=== PATIENT | female | born 1980 | race Caucasian/White ===

== ENCOUNTER 2025-03-21 22:45 | Observation (INO) ==
[2025-03-21 23:23] LABS: Basophils # (auto) 0.04 K/uL (0.00-0.20); Basophils % (auto) 0.5 %; Eosinophils # (auto) 0.38 K/uL (0.00-0.50); Eosinophils % (auto) 4.3 %; Hematocrit (blood only) 25.7 % (37.0-47.0); Hemoglobin 7.4 g/dl (12.0-16.0); Immature Granulocytes # (auto) 0.01 K/uL (0.01-0.20); Immature Granulocytes % (auto) 0.1 %; Lymphocytes # (auto) 2.18 K/uL (1.20-3.40); Lymphocytes % (auto) 24.8 %; Mean Corpuscular Hemoglobin 20.3 pg (25.0-34.0); Mean Corpuscular Hgb Conc 28.8 g/dL (32.0-36.0); Mean Corpuscular Volume 70.4 fL (80.0-100.0); Mean Platelet Volume 10.3 fL (9.4-12.4); Monocytes # (auto) 0.87 K/uL (0.11-0.59); Monocytes % (auto) 9.9 %; Neutrophils % (auto) 60.4 %; Platelet Count 219 K/uL (130-400); RDW Coefficient of Variation 16.4 % (11.5-14.5); RDW Standard Deviation 41.5 fL (36.4-46.3); Red Blood Count 3.65 M/uL (4.20-5.40); White Blood Count 8.78 K/ul (4.8-10.8)
--- NOTE | 2025-03-21 23:40 | Emergency Department Note ---
Impression & Plan Anemia, Acute dyspnea, Vaginal bleeding Admit to the [facility] ED Provider Note NAME: MELA MORENO AGE: 44 SEX: Female INFORMANT: Patient ED PROVIDER(S): Lor Luna DO CHIEF COMPLAINT: shortness of breath and hypoxia PLAN: Disposition: admit to the [facility] MEDICAL DECISION MAKING: this is a 44-year-old female patient with an extensive past medical history who presents to the emergency department with worsening shortness of breath. patient describes that it is hard for her to walk because of pain in her muscles and it hurts for her to breathe. She is retaining fluid. She has been monitoring monitoring her oxygen saturation at home and it has been in the 80s today. Symptoms worsened at around 1130 this morning. Most of the history is obtained from family member at the bedside. Laboratory study reveals normal white blood cell count and negative troponin. Patient's hemoglobin has dropped to 7.4 down from 8.4 on March 10. The patient has been having difficulty with abnormal uterine bleeding and is perimenopausal and is being followed by gynecology. This could be the source of blood loss. She does suffer from iron deficiency anemia at baseline. It seems that her acute blood loss anemia may have taken her chronic COPD/CHF up a notch to a point that she is unable to compensate. [facility] care. 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 Vital Signs: reviewed and remarkable for hypoxia Additional History obtained from: Family member at the bedside Chronic Medical/Social Conditions affecting care: asthma, COPD, CHF, iron deficiency anemia Prior/ Outside/ External records reviewed: multiple previous primary care notes Differential Diagnosis: blood loss anemia, GI bleeding, CHF, COPD exacerbation, pneumonia Diagnostics, independently interpreted by me: ECG: Normal sinus rhythm at [address] segment elevation or signs of ischemia. There is no ectopy. QTc was normal. Cardiac Monitoring: normal sinus rhythm at a rate of 90 Imaging studies: portable chest x-ray: As per [facility] HPI: 44 year old Female arrives for evaluation of shortness of breath. this is a 44-year-old female patient with a history of anemia, anxiety, bipolar, papillary thyroid carcinoma, asthma, nicotine dependence, obesity, COPD, CVID, type 2 diabetes, hypertension, hyperlipidemia, hypothyroidism, sleep apnea, CHF. patient has had increasing shortness of breath and hypoxia over the past couple of days. Symptoms got significantly worse around 1130 this morning. She noticed that it was becoming more difficult for her to walk secondary to pain up through her back and in her muscles. She found it hard to breathe and increased pain with breathing. PAST MEDICAL HISTORY: See Below, PAST SURGICAL HISTORY: See Below, SOCIAL HISTORY: See Below, HOME MEDICATIONS: See list ALLERGIES: See list VITALS: See Below PHYSICAL EXAMINATION: HEENT: Head - normocephalic and atraumatic. Pupils are equal, round, and reactive to light. Extraocular eye muscles are intact, and sclera are anicteric. Nose - moist nasal mucosa without discharge. Mouth - moist buccal mucosa. Oropharynx is nonerythematous and there is no tonsillar exudate or edema noted. Neck: Supple; no JVD, nuchal rigidity, cervical lymphadenopathy. Heart: Regular rate and rhythm. There is a normal S1 and S2 with no murmurs, clicks, or gallops appreciated. Lungs: Diminished breath sounds in all lung lozoya, clear to auscultation bilaterally with no wheezes, rales, or rhonchi. Abdomen: Soft, completely nontender, nondistended, with good bowel sounds. There are no palpable pulsatile masses or hepatosplenomegaly. There is no guarding, rigidity, or rebound noted. Extremities: 2+ pitting edema in both lower extremities. No skin breakdown appreciated Skin: Pale, warm and dry with good turgor and no rashes. Emergency Department treatment: security monitor, supplemental oxygen, oral Percocet Emergency Department course: The patient was evaluated in room B-8. A complete history and physical was performed. Patient was placed on supplemental oxygen. Previous electronic medical records including primary care notes were reviewed. Laboratory studies were drawn as above. An order was placed for continuous cardiac monitoring. Patient was in a normal sinus rhythm at a rate of 90. Twelve-lead EKG was obtained. Portable chest x-ray was performed. Patient was typed and screened for blood. She was given a dose of oral Percocet for the pain she is having in her legs and back. Past Med/Surg History Problem List (Updated 03/23/25 @ 10:47 by Lor Luna DO) Vaginal bleeding (Acute) Acute dyspnea (Acute) Anemia (Acute) CHF (congestive heart failure) Dyspnea on exertion Menorrhagia Iron deficiency anemia Lumbar radiculopathy Severe persistent asthma Dysphagia History of DVT (deep vein thrombosis) DARWIN (obstructive sleep apnea) Multiple pulmonary nodules determined by computed tomography of lung Adverse effect of prednisone CVID (common variable immunodeficiency) Benign essential hypertension Atherogenic dyslipidemia Morbid obesity with BMI of 40.0-44.9, adult Chronic back pain GERD (gastroesophageal reflux disease) Hypothyroidism Diabetes mellitus, type 2 Basal cell carcinoma above left eye Anemia Schizo affective schizophrenia Bipolar disorder Post traumatic stress disorder Migraine Sleep apnea cpap with oxygen at hs On home oxygen therapy 4L via CPAP at hs only Chronic obstructive pulmonary disease Asthma inhaler daily/prn, nebulizer prn Medical History History of COVID-19 Anxiety disorder Schizo affective schizophrenia PTSD (post-traumatic stress disorder) DARWIN (obstructive sleep apnea) On home oxygen therapy Multiple pulmonary nodules determined by computed tomography of lung Hx of migraines Hx of esophagitis Hypothyroidism GERD (gastroesophageal reflux disease) Diabetes mellitus, type 2 COPD (chronic obstructive pulmonary disease) Chronic back pain Bipolar disorder Asthma History of anemia Dyspnea on exertion History of thyroid cancer Immune system disorder Abnormal stress test (~2018) Hypertension Hyperlipidemia History of pneumonia (~2017) Surgical History History of lung surgery History of foot surgery History of lumbar surgery (~07/19/04) History of colonoscopy History of esophagogastroduodenoscopy (EGD) History of cholecystectomy (~2015) History of basal cell carcinoma (BCC) excision History of tooth extraction S/P thyroid biopsy History of thyroidectomy, total (~2018) History of cardiac cath (~2018) Family History Mother Family history of diabetes mellitus Grandfather (Maternal) Family hx of colon cancer Grandfather (Maternal) Colorectal cancer Other No family history of adverse response to anesthesia Denies family history of Ovarian cancer Prostate cancer Myocardial infarction Breast cancer Social History Smoking Status: Former smoker Tobacco Type: Cigarettes Age Started Using Tobacco: 17; Age Quit Using Tobacco: 42; packs per day: 1; Second Hand Exposure: No; Do You Dip or Chew Tobacco: No; Hx Alcohol Use: Yes Alcohol type: beer and wine Hx Substance Use: No Preferred Language: [place] Communication Ability: Effective Visual Impairment: No Limitations Hearing Ability: Normal Emulsion Operator Required: No Beliefs That Will Affect Care: None marital status: Life Partner Current Living Situation: Spouse Current Living Situation Comment: House with Spouse current occupational status: disabled Feels Safe at Home: Yes Childhood Exposure to Second-Hand Smoke: Yes Dental Care, Regularly: No Physical Activity Frequency: Daily Seatbelt Use: sometimes Sunscreen Use: No Assistive Devices: Cane, CPAP, Oxygen - Continuous, Slide Board and Walker Allergies Allergies Allergy/AdvReac Type Severity Reaction Status Date / Time vancomycin Allergy Severe "shuts Verified 03/21/25 23:54 down my kidneys" promethazine [From Phenergan] Allergy Intermediate muscle Verified 03/21/25 23:54 spams varenicline [From Chantix] Allergy Intermediate "caused Verified 03/21/25 23:54 mental health issues" clindamycin Allergy Mild Rash Verified 03/21/25 23:54 sulfamethoxazole Allergy Mild Rash Verified 03/21/25 23:54 [From Bactrim] trimethoprim [From Bactrim] Allergy Mild Rash Verified 03/21/25 23:54 Home Meds Home Medications Medication Instructions Recorded Confirmed albuterol sulfate 90 mcg/actuation 2 puff inhalation Q6H PRN 02/10/21 03/21/25 aerosol inhaler Shortness Of Breath epinephrine 0.3 mg/0.3 mL 0.3 mg IM Q10M PRN Allergic 02/10/21 03/21/25 injection, auto-injector Reaction fluticasone propionate 50 1 spray intranasal QAM 02/10/21 03/22/25 mcg/actuation nasal spray,suspension immune glob G 1 gram/5 mL(20 70 ml subcut WK 02/10/21 03/21/25 %)-prol-IgA 0-50 mcg/mL subcutaneous soln (Hizentra) levothyroxine 137 mcg capsule 137 mcg PO QAM 02/10/21 03/22/25 bupropion HCl 150 mg 24 hr tablet, 150 mg PO BID 02/14/21 03/22/25 extended release loratadine 10 mg tablet (Claritin) 10 mg PO QAM 02/14/21 03/22/25 potassium chloride 20 mEq oral 20 meq PO DAILY 02/14/21 03/22/25 packet benzonatate 100 mg capsule 100 mg PO BID PRN Cough 07/14/24 03/21/25 citalopram 10 mg tablet (Celexa) 10 mg PO QAM 07/14/24 03/22/25 diclofenac sodium 1 % topical gel 2 g topical QID PRN Pain 07/14/24 03/21/25 famotidine 20 mg tablet 20 mg PO BID 07/14/24 03/22/25 ipratropium bromide 42 mcg (0.06 2 spray intranasal QID PRN 07/14/24 03/21/25 %) nasal spray Congestion triamcinolone acetonide 0.5 % 1 applic topical DAILY PRN Skin 07/14/24 03/21/25 topical cream Irritation pantoprazole 40 mg tablet,delayed 40 mg PO QAM 10/07/24 03/22/25 release (Protonix) gabapentin 400 mg capsule 300 mg PO QID 02/02/25 03/22/25 hydroxyzine pamoate 50 mg capsule 50 mg PO BID PRN Anxiety 03/21/25 03/21/25 olanzapine 15 mg tablet 15 mg PO HS 03/21/25 03/21/25 olanzapine 5 mg tablet 5 mg PO DAILY PRN Agitation 03/21/25 03/21/25 semaglutide 0.25 mg or 0.5 mg (2 0.5 mg subcut WK 03/22/25 03/21/25 mg/3 mL) subcutaneous pen injector (Ozempic) Previous Rx's Medication Instructions Recorded diltiazem HCl 300 mg 300 mg PO QAM #90 caps 11/10/24 capsule,extended release 24 hr (Cardizem CD) metoprolol tartrate 50 mg tablet 50 mg PO BID #180 tabs 11/10/24 budesonide 160 mcg-glycopyr 9 2 inh inhalation BID #10.7 grams 01/04/25 mcg-formot 4.8 mcg/actuation HFA inhaler (Breztri Aerosphere) inhalational spacing device (Space #1 ea 01/04/25 Chamber) naloxone 4 mg/actuation nasal 4 mg intranasal Q2M PRN opioid 01/04/25 spray (Narcan) overdose #2 ea ondansetron HCl 8 mg tablet 8 mg PO Q8H PRN Nausea #30 tabs 04/01/25 ipratropium 0.5 mg-albuterol 3 mg 3 ml inhalation QID PRN Shortness 03/02/25 (2.5 mg base)/3 mL nebulization Of Breath #360 mL soln oxycodone-acetaminophen 5 mg-325 1 tab PO QID PRN pain 30 days #90 03/04/25 mg tablet (Percocet) tabs bumetanide 1 mg tablet 1 mg PO QAM #90 tabs 03/15/25 montelukast 10 mg tablet 10 mg PO QPM #90 tabs 03/15/25 (Singulair) ferrous sulfate 325 mg (65 mg 325 mg PO BIDM #60 tabs 03/22/25 iron) tablet,delayed release Results & Data (ED) Vital Signs Vital Signs - 24 hr 03/21/25 22:47 03/21/25 23:07 Temperature 36.8 C Temperature Source Temporal Artery Scan Pulse Rate 94 H 90 Pulse Rhythm Regular Pulse Strength Normal Respiratory Rate 20 Respiratory Effort / Characteristics Non-Labored Spontaneous Respiratory Depth Normal Respiratory Pattern Regular Blood Pressure 122/72 Blood Pressure Mean 88 Blood Pressure Position Sitting Pulse Oximetry 90 Oxygen Delivery Method Room Air Sepsis Recent Fever Within 48 Hours No Sepsis New/Unexplained Change in Mental Status No Sepsis Action Taken by Nursing No Action Required Laboratory Data 03/22/25 12:57 03/22/25 09:16 Lab Results 03/21/25 03/22/25 03/22/25 Range/Units 23:04 00:05 00:23 WBC 8.78 (4.8-10.8) K/ul RBC 3.65 L (4.20-5.40) M/uL Hgb 7.4 L (12.0-16.0) g/dl Hct 25.7 L (37.0-47.0) % MCV 70.4 L (80.0-100.0) fL MCH 20.3 L (25.0-34.0) pg MCHC 28.8 L (32.0-36.0) g/dL RDW Std Deviation 41.5 (36.4-46.3) fL RDW Coeff of Shen 16.4 H (11.5-14.5) % Plt Count 219 (130-400) K/uL MPV 10.3 (9.4-12.4) fL Immature Gran % (Auto) 0.1 % Neut % (Auto) 60.4 % Lymph % (Auto) 24.8 % [place] % (Auto) 9.9 % Eos % (Auto) 4.3 % Baso % (Auto) 0.5 % Neut # (Auto) 5.30 (1.40-6.50) K/uL Lymph # (Auto) 2.18 (1.20-3.40) K/uL [place] # (Auto) 0.87 H (0.11-0.59) K/uL Eos # (Auto) 0.38 (0.00-0.50) K/uL Baso # (Auto) 0.04 (0.00-0.20) K/uL Immature Gran # (Auto) 0.01 (0.01-0.20) K/uL Polychromasia 2+ Stomatocytes 1+ Sodium 133 L (136-145) mmol/L Potassium 3.9 (3.5-5.1) mmol/L Chloride 97 L (98-107) mmol/L Carbon Dioxide 32 (21-32) mmol/L Anion Gap 4 (3-11) BUN 14 (6-23) mg/dl Creatinine 1.08 (0.6-1.2) mg/dl Est Cr Clr Drug Dosing 72.6 ml/min eGFR 64.96 BUN/Creatinine Ratio 13.0 (10-20) Glucose 135 H (70-99(Fasting)) mg/dl Calcium 8.3 L (8.6-10.3) mg/dl Magnesium 1.8 (1.7-2.4) mg/dl Total Bilirubin 0.3 (0.2-1.0) mg/dl AST 21 (13-39) U/L ALT 17 (7-52) U/L Alkaline Phosphatase 97 (34-104) U/L Troponin I High Sens 3.3 (0-14) pg/ml Total Protein 6.2 (6.0-8.3) gm/dl Albumin 3.7 (3.4-5.0) gm/dl Globulin 2.5 (2.5-4.0) gm/dl Albumin/Globulin Ratio 1.5 (0.9-2) Urine Color Yellow Urine Appearance Clear (Clear) Urine pH 5.5 (4.5-7.5) Ur Specific [place] 1.009 (1.000-1.030) Urine Protein Negative (Negative) Urine Glucose (UA) Negative (Negative) Urine Ketones Negative (Negative) Urine Blood 1+ H (Negative) Urine Nitrite Negative (Negative) Urine Bilirubin Negative (Negative) Urine Urobilinogen Negative (Negative) Ur Leukocyte Esterase Trace H (Negative) Urine WBC (Auto) 0-5 (0-5) /hpf Urine RBC (Auto) 0-2 (0-2) /hpf U Hyaline Cast (Auto) 0-2 (0-2) /lpf U Epithel Cells (Auto) 3-5 H (0-2) /hpf Urine Bacteria (Auto) None Seen (None Seen) Blood Type AB Positive Antibody Screen NEGATIVE Crossmatch See Detail Administered Medications Discontinued Medications Bupropion HCl (Bupropion Xl 150 Mg Tabcr) 150 mg PO BID [facility] Stop: 04/21/25 08:59 Last Admin: 03/22/25 10:03 Dose: 150 mg Documented By: HERMELINDA Citalopram Hydrobromide (Citalopram 20 Mg Tab) 10 mg PO [facility] Stop: 04/21/25 08:59 Last Admin: 03/22/25 10:02 Dose: 10 mg Documented By: HERMELINDA Diltiazem HCl (Diltiazem Hcl 300 Mg Capcr) 300 mg PO [facility] Stop: 04/21/25 08:59 Last Admin: 03/22/25 10:03 Dose: 300 mg Documented By: HERMELINDA Famotidine (Famotidine 20 Mg Tab) 20 mg PO BID [facility] Stop: 04/21/25 08:59 Last Admin: 03/22/25 10:14 Dose: 20 mg Documented By: HERMELINDA Fluticasone Furoate (For Breztri~Fluticasone Furoate 200mcg 14 Puffs/Inhaler) 1 puffs INH DAILY [facility] Stop: 04/21/25 08:59 Last Admin: 03/22/25 10:08 Dose: 1 puffs Documented By: HERMELINDA Fluticasone Propionate (Fluticasone Propionate Na Spr 16 Gm Btl) 1 sprays NA QAM [facility] Stop: 04/21/25 08:59 Last Admin: 03/22/25 10:06 Dose: 1 sprays Documented By: HERMELINDA Furosemide (Furosemide 40 Mg/4 Ml Vial) 40 mg IV ONE ONE Stop: 03/22/25 10:01 Last Admin: 03/22/25 10:41 Dose: Not Given Documented By: HERMELINDA Gabapentin (Gabapentin 300 Mg Cap) 300 mg PO QID [facility] Stop: 04/21/25 08:59 Last Admin: 03/22/25 10:02 Dose: 300 mg Documented By: HERMELINDA Iron Sucrose 300 mg/ Sodium (Chloride) 265 mls @ 176.667 mls/hr IV TODAY ONE Stop: 03/22/25 09:59 Last Infusion: 03/22/25 11:35 Dose: Infused Documented By: Admin: 03/22/25 10:05 Dose: 176.7 mls/hr Documented By: HERMELINDA Insulin Aspart (Insulin Aspart Per Unit Charge) 0 units SC ACHS [facility] Stop: 04/21/25 07:29 Last Admin: 03/22/25 12:41 Dose: Not Given Documented By: Admin: 03/22/25 10:40 Dose: Not Given Documented By: HERMELINDA Levothyroxine Sodium (Levothyroxine Sodium 137 Mcg Tablet) 137 mcg PO DAILYBB [facility] Stop: 04/21/25 06:29 Last Admin: 03/22/25 05:55 Dose: 137 mcg Documented By: MELY Loratadine (L[facility]adine 10 Mg Tab) [facility] Stop: 04/21/25 08:59 Last Admin: 03/22/25 10:05 Dose: 10 mg Documented By: HERMELINDA Metoprolol Tartrate (Metoprolol Tartrate 50 Mg Tab) 50 mg PO BID [facility] Stop: 04/21/25 08:59 Last Admin: 03/22/25 10:05 Dose: 50 mg Documented By: HERMELINDA Oxycodone/Acetaminophen (Oxycodone/Acetaminophen 5mg/325mg Tab) 1 tab PO NOW STA Stop: 03/22/25 00:07 Last Admin: 03/22/25 00:42 Dose: 1 tab Documented By: KASH Oxycodone/Acetaminophen (Oxycodone/Acetaminophen 5mg/325mg Tab) 1 tab PO QID PRN PRN Reason: pain Stop: 04/05/25 03:52 Last Admin: 03/22/25 10:14 Dose: 1 tab Documented By: HERMELINDA Pantoprazole Sodium (Pantoprazole 40 Mg Tab) 40 mg PO QAM [facility] Stop: 04/21/25 08:59 Last Admin: 03/22/25 10:05 Dose: 40 mg Documented By: HERMELINDA Potassium Chloride (Potassium Chloride Pwd 20 Meq Pack) 20 meq PO DAILY [facility] Stop: 04/21/25 08:59 Last Admin: 03/22/25 10:08 Dose: 20 meq Documented By: HERMELINDA Umeclidinium/Vilanterol (For Breztri~Umeclidinium/Vilanterol 62.5/25mcg 7 Puffs/Inhaler) 1 puffs INH DAILY [facility] Stop: 04/21/25 08:59 Last Admin: 03/22/25 10:06 Dose: 1 puffs Documented By: HERMELINDA Discharge Plan Visit Data Chief Complaint: Shortness of Breath/Dyspnea Stated Complaint: HURTS TO BREATHE, LOW OXYGEN ED Provider: Lor Luna Discharge Problem: Anemia, Acute dyspnea, Vaginal bleeding Patient Disposition: Admitted As Inpatient Condition: Serious Discharge Instructions Interventions: ED Discharge Assessment Last Done: 03/22/25 03:15
[2025-03-21 23:41] LABS: Albumin Globulin Ratio 1.5 (0.9-2); Albumin Level 3.7 gm/dl (3.4-5.0); Bilirubin,Total 0.3 mg/dl (0.2-1.0); Calcium 8.3 mg/dl (8.6-10.3); Creatinine Clr Calc Pharmacy 72.6 ml/min; Globulin 2.5 gm/dl (2.5-4.0); Potassium 3.9 mmol/L (3.5-5.1); Total Protein 6.2 gm/dl (6.0-8.3)
[2025-03-22 00:11] LABS: Polychromasia 2+; Stomatocytes 1+
[2025-03-22] MEDS: oxyCODONE/ACETAMINOPHEN 5mg/325mg TAB PO STA (00:42)
[2025-03-22 01:23] LABS: Appearance Urine Clear (Clear); Bacteria Urine Automated None Seen (None Seen); Bilirubin Urine Negative (Negative); Blood Urine 1+ (Negative); Cast Urine Automated 0-2 /lpf (0-2); Color Urine Yellow; Glucose Urine UA Negative (Negative); Ketones Urine Negative (Negative); Leukocyte Esterase Urine Trace (Negative); Nitrite Urine Negative (Negative); Protein Urine Negative (Negative); RBC Urine Automated 0-2 /hpf (0-2); Specific Gravity Urine 1.009 (1.000-1.030); Urobilinogen Urine Negative (Negative); WBC Urine Automated 0-5 /hpf (0-5); pH Urine 5.5 (4.5-7.5)
--- NOTE | 2025-03-22 01:42 | History & Physical Report ---
Date of Service March 22, 2025 Assessment & Plan (1) Iron deficiency anemia: (2) Menorrhagia: (3) Dyspnea on exertion: (4) CHF (congestive heart failure): Plan Patient is a 44-year-old female with past medical history of anemia 2/2 dysfunctional uterine bleeding requiring iron transfusions in the past, DARWIN, COPD, asthma, CVID, pulmonary nodules, CHF, GERD, T2DM, thyroid cancer s/p thyroidectomy, DVT on Xarelto, HTN, HLD, bipolar disorder. Patient presented due to significant dyspnea on exertion, dizziness, pleuritic chest pain, and O2 levels in the 80s at home. She does have oxygen as needed at home which she has not used in several days. Patient was found to have hemoglobin drop from 8.4- 7.4 suspected to be due to current menses which patient stated is heavy. Hemoccult negative. #anemia/dysfunctional uterine bleeding/dyspnea Hgb dropped from 8.4-7.4; microcytic hypochromic anemia. Hemoccult negative. Iron panel 03/10 showed iron 20, TIBC 552, ferritin 4.6 patient is scheduled for iron transfusion next week. VSS at time of admission, on home oxygen at bedtime. - Blood consent signed at time of admission - Type and screen ordered - will order 1U PRBC given symptomatic anemia followed by Lasix 40mg IV x 1 with CHF hx - Trend H&H every 4 hours - Will continue IV Venofer scheduled in outpatient setting as needs to be 24- hour gap between pRBC transfusion - incentive spirometry with dyspnea #CHF - CXR pending however self interpreted as negative, similar to previous. 1+ pitting edema to bilateral lower extremities. Ejection fraction unknown has has recently establish care with [facility] cardiology and yet to receive an echocardiogram (scheduled outpatient). IV Lasix 40 Mg x 1 after blood transfusion - continue Bumex 1 Mg p.o. daily + KCl Teds for lower extremity edema Strict I's and O's - monitor for taco/trali with pRBC above - BNP ordered; acute CHF exacerbation remains within differential given dyspnea and lower extremity edema however dyspnea also explained with above #COPD/asthma/ pulmonary nodules follows with [facility] pulmonology. Stable, no acute exacerbation, no increase in wheezing, no sputum production. Continue home inhalers + duo-neb prn Oxygen as needed for O2 less than 90% #OSAstable Uses 2L oxygen at home with CPAP #T2DM - Controlled on Ozempic at home; hold. Most recent A1C 5.7%. - loose SSI with target BSG range 110-180mg/dL, CF 40, defer carb ratio #CVID - follows with [facility] immunology - Hizentra weekly #HTNstable Continue Cardizem and metoprolol #GERDstable Continue famotidine and PPI #mental healthstable Continue Wellbutrin, Celexa, hydroxyzine prn, Zyprexa HS and prn #thyroid cancers/p partial thyroidectomy Continue levothyroxine #Chronic low back painstable Continue gabapentin VTE ppx: Hx of DVT continue home karthik Garcia Dispo: med/tele Admission and Anticipated Discharge Date Admission Date: 03/22/25 History of Present Illness Chief Complaint: dyspnea Primary Care Provider: Faye Kimball DO Patient is a 44-year-old female with past medical history of anemia 2/2 dysfunctional uterine bleeding requiring iron transfusions in the past, DARWIN, COPD, asthma, CVID, pulmonary nodules, CHF, GERD, T2DM, thyroid cancer s/p thyroidectomy, DVT on Xarelto, HTN, HLD, bipolar disorder. Patient presented due to significant dyspnea on exertion, dizziness, pleuritic chest pain, and O2 levels in the 80s at home. She does have oxygen as needed at home which she has not used in several days. Patient was found to have hemoglobin drop from 8.4- 7.4 suspected to be due to current menses which patient stated is heavy. Hemoccult negative. Patient seen at bedside with her partner present. She endorses the above. She stated that over the past few days she has had dyspnea on exertion and it hurts to take a deep breath. She also endorses fatigue. she stated that her periods used to be regular however her past few have been extremely heavy and lasting for up to 2 weeks. She is currently on day 2 of her current menses and stated it is extremely heavy. She is following with [facility] for potential IUD. She has 1+ pitting edema to bilateral lower extremities which she stated started a few days ago. Her recent diet has been at her baseline, she had beef stew, sloppy Darron's, and hot dogs recently. She also stated she feels like her Bumex is not working as well as she is not peeing as much. CXR personally reviewed and appears to be without any pleural effusions, however official radiologist read pending at this time. She denies any abdominal pain, vomiting, diarrhea, melena, hematochezia. She was a former smoker and quit in 2022. She denies alcohol use. She uses 2L oxygen at night with her CPAP and has a portable oxygen machine which she last used several weeks ago. She did take all of her evening medications. She wishes to be full code, however would not want repeated resuscitation or long- term ventilation. History of iron transfusions (most recent 2 years ago), has had a history of 1 blood transfusion and approximately 2009. Iron panel 03/10 showed iron 20, TIBC 552, ferritin 4.6patient is scheduled for iron transfusion next week. Allergies Allergy/AdvReac Type Severity Reaction Status Date / Time vancomycin Allergy Severe "shuts Verified 03/21/25 23:54 down my kidneys" promethazine [From Phenergan] Allergy Intermediate muscle Verified 03/21/25 23:54 spams varenicline [From Chantix] Allergy Intermediate "caused Verified 03/21/25 23:54 mental health issues" clindamycin Allergy Mild Rash Verified 03/21/25 23:54 sulfamethoxazole Allergy Mild Rash Verified 03/21/25 23:54 [From Bactrim] trimethoprim [From Bactrim] Allergy Mild Rash Verified 03/21/25 23:54 Home Medications Medication Instructions Recorded Confirmed Type albuterol sulfate 90 mcg/actuation 2 puff inhalation Q6H PRN 02/10/21 03/21/25 History aerosol inhaler Shortness Of Breath epinephrine 0.3 mg/0.3 mL 0.3 mg IM Q10M PRN Allergic 02/10/21 03/21/25 History injection, auto-injector Reaction fluticasone propionate 50 1 spray intranasal QAM 02/10/21 03/22/25 History mcg/actuation nasal spray,suspension immune glob G 1 gram/5 mL(20 70 ml subcut WK 02/10/21 03/21/25 History %)-prol-IgA 0-50 mcg/mL subcutaneous soln (Hizentra) levothyroxine 137 mcg capsule 137 mcg PO QAM 02/10/21 03/22/25 History bupropion HCl 150 mg 24 hr tablet, 150 mg PO BID 02/14/21 03/22/25 History extended release loratadine 10 mg tablet (Claritin) 10 mg PO QAM 02/14/21 03/22/25 History potassium chloride 20 mEq oral 20 meq PO DAILY 02/14/21 03/22/25 History packet benzonatate 100 mg capsule 100 mg PO BID PRN Cough 07/14/24 03/21/25 History citalopram 10 mg tablet (Celexa) 10 mg PO QAM 07/14/24 03/22/25 History diclofenac sodium 1 % topical gel 2 g topical QID PRN Pain 07/14/24 03/21/25 History famotidine 20 mg tablet 20 mg PO BID 07/14/24 03/22/25 History ipratropium bromide 42 mcg (0.06 2 spray intranasal QID PRN 07/14/24 03/21/25 History %) nasal spray Congestion triamcinolone acetonide 0.5 % 1 applic topical DAILY PRN Skin 07/14/24 03/21/25 History topical cream Irritation pantoprazole 40 mg tablet,delayed 40 mg PO QAM 10/07/24 03/22/25 History release (Protonix) diltiazem HCl 300 mg 300 mg PO QAM #90 caps 11/10/24 03/22/25 Rx capsule,extended release 24 hr (Cardizem CD) metoprolol tartrate 50 mg tablet 50 mg PO BID #180 tabs 11/10/24 03/22/25 Rx budesonide 160 mcg-glycopyr 9 2 inh inhalation BID #10.7 grams 01/04/25 03/22/25 Rx mcg-formot 4.8 mcg/actuation HFA inhaler (Breztri Aerosphere) inhalational spacing device (Space #1 ea 01/04/25 03/15/25 Rx Chamber) naloxone 4 mg/actuation nasal 4 mg intranasal Q2M PRN opioid 01/04/25 03/21/25 Rx spray (Narcan) overdose #2 ea gabapentin 400 mg capsule 300 mg PO QID 02/02/25 03/22/25 History ondansetron HCl 8 mg tablet 8 mg PO Q8H PRN Nausea #30 tabs 02/09/25 03/21/25 Rx ipratropium 0.5 mg-albuterol 3 mg 3 ml inhalation QID PRN Shortness 03/02/25 03/21/25 Rx (2.5 mg base)/3 mL nebulization Of Breath #360 mL soln oxycodone-acetaminophen 5 mg-325 1 tab PO QID PRN pain 30 days #90 03/04/25 03/21/25 Rx mg tablet (Percocet) tabs bumetanide 1 mg tablet 1 mg PO QAM #90 tabs 03/15/25 03/22/25 Rx montelukast 10 mg tablet 10 mg PO QPM #90 tabs 03/15/25 03/22/25 Rx (Singulair) hydroxyzine pamoate 50 mg capsule 50 mg PO BID PRN Anxiety 03/21/25 03/21/25 History olanzapine 15 mg tablet 15 mg PO HS 03/21/25 03/21/25 History olanzapine 5 mg tablet 5 mg PO DAILY PRN Agitation 03/21/25 03/21/25 History ferrous sulfate 325 mg (65 mg 325 mg PO BIDM #60 tabs 03/22/25 Rx iron) tablet,delayed release semaglutide 0.25 mg or 0.5 mg (2 0.5 mg subcut WK 03/22/25 03/21/25 History mg/3 mL) subcutaneous pen injector (Ozempic) Past Med/Surg History Problem List (Updated 03/22/25 @ 02:09 by Ivania Lyons PA-C) CHF (congestive heart failure) Dyspnea on exertion Menorrhagia Iron deficiency anemia Lumbar radiculopathy Severe persistent asthma Dysphagia History of DVT (deep vein thrombosis) DARWIN (obstructive sleep apnea) Multiple pulmonary nodules determined by computed tomography of lung Adverse effect of prednisone CVID (common variable immunodeficiency) Benign essential hypertension Atherogenic dyslipidemia Morbid obesity with BMI of 40.0-44.9, adult Chronic back pain GERD (gastroesophageal reflux disease) Hypothyroidism Diabetes mellitus, type 2 Basal cell carcinoma above left eye Anemia Schizo affective schizophrenia Bipolar disorder Post traumatic stress disorder Migraine Sleep apnea cpap with oxygen at hs On home oxygen therapy 4L via CPAP at hs only Chronic obstructive pulmonary disease Asthma inhaler daily/prn, nebulizer prn Medical History History of COVID-19 Anxiety disorder Schizo affective schizophrenia PTSD (post-traumatic stress disorder) DARWIN (obstructive sleep apnea) On home oxygen therapy Multiple pulmonary nodules determined by computed tomography of lung Hx of migraines Hx of esophagitis Hypothyroidism GERD (gastroesophageal reflux disease) Diabetes mellitus, type 2 COPD (chronic obstructive pulmonary disease) Chronic back pain Bipolar disorder Asthma History of anemia Dyspnea on exertion History of thyroid cancer Immune system disorder Abnormal stress test (~2018) Hypertension Hyperlipidemia History of pneumonia (~2017) Surgical History History of lung surgery History of foot surgery History of lumbar surgery (~07/19/04) History of colonoscopy History of esophagogastroduodenoscopy (EGD) History of cholecystectomy (~2015) History of basal cell carcinoma (BCC) excision History of tooth extraction S/P thyroid biopsy History of thyroidectomy, total (~2017) History of cardiac cath (~2017) Family History Mother Family history of diabetes mellitus Grandfather (Maternal) Family hx of colon cancer Grandfather (Maternal) Colorectal cancer Other No family history of adverse response to anesthesia Denies family history of Ovarian cancer Prostate cancer Myocardial infarction Breast cancer Social History Smoking Status: Former smoker Tobacco Type: Cigarettes Age Started Using Tobacco: 17; Age Quit Using Tobacco: 42; packs per day: 1; Second Hand Exposure: No; Do You Dip or Chew Tobacco: No; Hx Alcohol Use: Yes Alcohol type: beer and wine Hx Substance Use: No Preferred Language: Lithuanian Communication Ability: Effective Visual Impairment: No Limitations Hearing Ability: Normal Turner Off Required: No Beliefs That Will Affect Care: None marital status: Life Partner Current Living Situation: Spouse Current Living Situation Comment: House with Spouse current occupational status: disabled Feels Safe at Home: Yes Childhood Exposure to Second-Hand Smoke: Yes Dental Care, Regularly: No Physical Activity Frequency: Daily Seatbelt Use: sometimes Sunscreen Use: No Assistive Devices: Denture - Upper, Denture - Lower and Glasses Review of Systems Review of Systems: see HPI Physical Exam Physical Exam: The patient is awake, alert and oriented 3, well developed and well nourished, normocephalic and atraumatic, in no acute distress. Non-toxic appearing. HEENT- EOMI, mucous membranes moist. Hearing grossly intact. Heart-normal S1 and S2. No murmurs, rubs or gallops. Lungs-decreased bilaterally, no respiratory distress, no accessory muscle use. Abdomen-normal bowel sounds and soft. No ascites noted. Non-tender. Extremities- no clubbing, cyanosis. 1+ pitting edema to bilateral lower extremity. Rheumatologic-normal range of motion. Psychiatric-normal affect. Results & Data Results & Data Vital Signs (Past 12 Hours) Vital Signs Temp Pulse Pulse Resp BP BP Pulse Ox 03/22/25 01:00 84 16 117/81 94 03/22/25 00:00 36.8 C 88 20 117/73 95 03/21/25 23:07 90 03/21/25 23:00 90 19 95 03/21/25 23:00 90 19 95 03/21/25 23:00 36.8 C 90 19 135/84 95 03/21/25 23:00 93 03/21/25 23:00 03/21/25 22:47 36.8 C 94 H 20 122/72 90 O2 Del Method O2 Flow Rate 03/22/25 01:00 Nasal Cannula 2 03/22/25 00:00 Nasal Cannula 2 03/21/25 23:07 03/21/25 23:00 Nasal Cannula 2 03/21/25 23:00 Nasal Cannula 2 03/21/25 23:00 Nasal Cannula 2 03/21/25 23:00 Nasal Cannula 2 03/21/25 23:00 Nasal Cannula 2 03/21/25 22:47 Room Air Laboratory Results Reviewed CBC, CMP Ordered magnesium and BNP Diagnostic Findings reviewed CXR Medications Administered EDPercocet ECG Additional Comments: normal sinus rhythm, incomplete RBBB Rate 89 Code Status & VTE Plan Code Status full code VTE Prophylaxis Plan VTE Prophylaxis will be ordered: Yes Supervising Physician Co-Signing Physician Notes Patient seen and examined, chart reviewed, case discussed with ABIHJIT Lyons and I agree with the assessment and plan as above. In brief, patient is a 44yo female wit multiple medical comorbidities presenting with shortness of breath - anemia with Hgb=7.4 in setting of dysfunctional uterine bleeding, iron deficiency anemia ON exam she is afebrile, HD stable Blood tranfusing, near complete MMM Neck supple +S1/S2, regualr, no m/r/g Lungs CTA Abd soft, NT/ND Labs and images reviewed Assessment/PLan Transfusion 1u PRBCs, patient should be set up for IV Venofer infusion as well outpatient Lasix 40mg IV after transfusion Management of chronic medical issues as above PG Care Time/CCT Total # of Minutes Spent Total Time Spent with Patient: Total time spent is greater than 50% in coordination of care (as documented) at patient's floor/unit and/or counseling patient: Coding Level of Care Code 22528 INT INP/OBS CARE 3/75MIN Diagnoses Iron deficiency anemia D50.9 Menorrhagia N92.0 Dyspnea on exertion R06.09 CHF (congestive heart failure) I50.9
[2025-03-22] MEDS ORDERED: SODIUM CHLORIDE 0.9% 100 ML IV PRN (01:48)
[2025-03-22 02:02] LABS: Magnesium 1.8 mg/dl (1.7-2.4)
[2025-03-22] MEDS ORDERED: DEXTROSE 50% 50 ML SYRINGE IV PRN (03:53)
[2025-03-22] MEDS ORDERED: DOCUSATE SODIUM 100 MG CAP PO PRN (03:53)
[2025-03-22] MEDS ORDERED: MELATONIN 3 MG TAB PO PRN (03:53)
[2025-03-22] MEDS ORDERED: ACETAMINOPHEN 325 MG TAB PO PRN (03:53)
[2025-03-22] MEDS ORDERED: GLUCOSE 40% GEL 15 GM TUBE PO PRN (03:53)
[2025-03-22] MEDS ORDERED: ONDANSETRON INJ 2 MG/ML 2 ML VIAL IV PRN (03:53)
[2025-03-22] MEDS ORDERED: BENZONATATE 100 MG CAPSULE PO PRN (03:53)
[2025-03-22] MEDS ORDERED: GLUCOSE 10 TAB/TUBE PO PRN (03:53)
[2025-03-22] MEDS ORDERED: ALBUTEROL HFA 8 GM INHALER INH PRN (03:53)
[2025-03-22] MEDS ORDERED: GLUCAGON FOR INJ 1 MG VIAL SQ PRN (03:53)
[2025-03-22] MEDS ORDERED: hydrOXYzine HCl 25 MG TAB PO PRN (03:53)
[2025-03-22] MEDS ORDERED: CARBOHYDRATES FOR HYPOGLYCEMIA PO PRN (03:53)
[2025-03-22] MEDS ORDERED: ALBUT/IPRATROP 3MG/0.5MG NEB 3 ML VIAL INH PRN (03:53)
[2025-03-22] MEDS ORDERED: IPRATROPIUM BROMIDE NASAL SPRAY 0.06% 15ML PRN (03:53)
[2025-03-22] MEDS ORDERED: OLANZapine 5 MG TABLET PO PRN (03:53)
--- NOTE | 2025-03-22 03:56 | XRay Report ---
EXAM: XR chest 1V portable CLINICAL HISTORY: Dyspnea TECHNIQUE: An X-ray image of the chest is obtained in AP projection. COMPARISON: 02/12/2025 CR FINDINGS: Lungs: Interval stable small calcified lesions right mid lung zone. No evidence of nodules, infiltrates or mass noted. Prominent hilar shadows and bronchovascular markings at both lung lozoya denoting congestive changes. Diaphragms: Unremarkable. Pleura: Blunting of right costophrenic angle noted may be secondary to pleural thickening. No effusions or pneumothorax are identified. Heart: apparent cardiomegaly in AP position. Aorta: Unremarkable. Pulmonary arteries: Unremarkable. Hilum: Unremarkable. Osseous structures: Normal mineralization of the visualized bony structures. Interval stable healed rib fractures. IMPRESSION: 1. Interval stable calcified lesions in the right mid lung zone. 2-Stable blunting of the right costophrenic angle, suggesting mild right-sided pleural effusion. 2. Prominent hilar shadows and bronchovascular markings at both lung lozoya denoting congestive changes. Stable 3. Stable healed rib fractures. Electronically signed by Alphonse Thornton 03-22-2025 03:56 AM
[2025-03-22] MEDS: LEVOTHYROXINE SODIUM 137 MCG TABLET PO SCH (05:55)
[2025-03-22 07:33] VITALS: O2SAT 95
[2025-03-22] MEDS ORDERED: NON-FORMULARY MEDICATION (Budesonide-Glycopyr-Formoterol [Breztri Aerosphere] 160-9-4.8 mc INH SCH (09:00)
[2025-03-22] MEDS ORDERED: BUMETANIDE 1 MG TAB PO SCH (09:00)
[2025-03-22 09:33] LABS: Basophils # (auto) 0.03 K/uL (0.00-0.20); Basophils % (auto) 0.4 %; Eosinophils # (auto) 0.39 K/uL (0.00-0.50); Eosinophils % (auto) 5.2 %; Hemoglobin 8.6 g/dl (12.0-16.0); Immature Granulocytes # (auto) 0.02 K/uL (0.01-0.20); Immature Granulocytes % (auto) 0.3 %; Lymphocytes # (auto) 2.17 K/uL (1.20-3.40); Lymphocytes % (auto) 28.8 %; Mean Corpuscular Hemoglobin 20.6 pg (25.0-34.0); Mean Corpuscular Hgb Conc 28.7 g/dL (32.0-36.0); Mean Corpuscular Volume 71.9 fL (80.0-100.0); Monocytes # (auto) 0.77 K/uL (0.11-0.59); Monocytes % (auto) 10.2 %; Neutrophils # (auto) 4.16 K/uL (1.40-6.50); Neutrophils % (auto) 55.1 %; Platelet Count 202 K/uL (130-400); RDW Coefficient of Variation 16.8 % (11.5-14.5); RDW Standard Deviation 43.4 fL (36.4-46.3); Red Blood Count 4.17 M/uL (4.20-5.40); White Blood Count 7.54 K/ul (4.8-10.8)
[2025-03-22 09:48] LABS: BUN Creatinine Ratio 11.7 (10-20); Creatinine Clr Calc Pharmacy 82.7 ml/min
[2025-03-22 09:49] LABS: Calcium 8.8 mg/dl (8.6-10.3); Magnesium 2.1 mg/dl (1.7-2.4)
[2025-03-22] MEDS: GABAPENTIN 300 MG CAP PO SCH (10:02)
[2025-03-22] MEDS: CITALOPRAM 20 MG TAB PO SCH (10:02)
[2025-03-22] MEDS: buPROPion XL 150 MG TABCR PO SCH (10:03)
[2025-03-22] MEDS: dilTIAZem HCL 300 MG CAPCR PO SCH (10:03)
[2025-03-22] MEDS: PANTOprazole 40 MG TAB PO SCH (10:05)
[2025-03-22] MEDS: LORATADINE 10 MG TAB PO SCH (10:05)
[2025-03-22] MEDS: IRON SUCROSE 300 MG in SODIUM CHLORIDE 0.9% 250 ML IV ONE (10:05)
[2025-03-22] MEDS: METOPROLOL TARTRATE 50 MG TAB PO SCH (10:05)
[2025-03-22] MEDS: FLUTICASONE PROPIONATE NA SPR 16 GM BTL SCH (10:06)
[2025-03-22] MEDS: For Breztri~UMECLIDINIUM/VILANTEROL 62.5/25MCG 7 PUFFS/INHALER INH SCH (10:06)
[2025-03-22] MEDS: For Breztri~FLUTICASONE FUROATE 200MCG 14 PUFFS/INHALER INH SCH (10:08)
[2025-03-22] MEDS: POTASSIUM CHLORIDE PWD 20 MEQ PACK PO SCH (10:08)
[2025-03-22] MEDS: oxyCODONE/ACETAMINOPHEN 5mg/325mg TAB PO PRN (10:14)
[2025-03-22] MEDS: FAMOTIDINE 20 MG TAB PO SCH (10:14)
[2025-03-22] MEDS: FUROSEMIDE 40 MG/4 ML VIAL IV ONE ×2 (10:15→10:41)
[2025-03-22] MEDS: INSULIN ASPART PER UNIT CHARGE SC SCH (10:40)
--- NOTE | 2025-03-22 11:49 | Discharge Summary ---
Discharge Summary Date of Service March 22, 2025 Principal Dx & Hospital Course #1 = Principal Diagnosis (1) Iron deficiency anemia: (2) Menorrhagia: (3) Dyspnea on exertion: (4) CHF (congestive heart failure): Plan Patient is a 44-year-old female with past medical history of anemia 2/2 dysfunctional uterine bleeding requiring iron transfusions in the past, DARWIN, COPD, asthma, CVID, pulmonary nodules, CHF, GERD, T2DM, thyroid cancer s/p thyroidectomy, DVT on Xarelto, HTN, HLD, bipolar disorder. Patient presented due to significant dyspnea on exertion, dizziness, pleuritic chest pain, and O2 levels in the 80s at home. She does have oxygen as needed at home which she has not used in several days. Patient was found to have hemoglobin drop from 8.4- 7.4 suspected to be due to current menses which patient stated is heavy. Hemoccult negative. #anemia/dysfunctional uterine bleeding/dyspnea Hgb dropped from 8.4-7.4; microcytic hypochromic anemia. Hemoccult negative. Iron panel 03/10 showed iron 20, TIBC 552, ferritin 4.6 patient is scheduled for iron transfusion again next week. Parenteral iron replacement ordered for today, March 23. Xarelto has been discontinued. She has been on this for nearly 2 years now since she had a isolated DVT of the leg which has been her only thrombotic event. She has no past history of coagulopathy. She will take oral iron supplements going forward. . - She received 1 unit packed red blood cells on admission. Follow-up hemoglobin level is 8.6. # Chronic diastolic CHF - no overt CHF on chest x-ray on admission. She has chronic 1+ pitting edema to bilateral lower extremities. Ejection fraction unknown has has recently establish care with [facility] cardiology and yet to receive an echocardiogram (scheduled outpatient). She did receive IV Lasix 40 Mg x 1 after blood transfusion - She remains on oral Bumex 1 Mg p.o. daily + KCl #COPD/asthma/ pulmonary nodules follows with [facility] pulmonology. Currently stable. Continue home inhalers + duo-neb prn Oxygen as needed for O2 less than 90% #OSAstable Uses 2L oxygen at home with CPAP #T2DM - Controlled on Ozempic at home; hold. Most recent A1C 5.7%. - loose SSI with target BSG range 110-180mg/dL, CF 40, defer carb ratio #CVID - follows with [facility] immunology - Hizentra weekly #HTNstable Continue Cardizem and metoprolol #GERDstable Continue famotidine and PPI #mental healthstable Continue Wellbutrin, Celexa, hydroxyzine prn, Zyprexa HS and prn #thyroid cancers/p partial thyroidectomy Continue levothyroxine #Chronic low back painstable Continue gabapentin VTE ppx: Hx of DVT continue home karthik Garcia Dispo: Home today, March 22 Admission HPI Per Admitting Provider Patient is a 44-year-old female with past medical history of anemia 2/2 d ysfunctional uterine bleeding requiring iron transfusions in the past, DARWIN, COPD, asthma, CVID, pulmonary nodules, CHF, GERD, T2DM, thyroid cancer s/p thyroidectomy, DVT on Xarelto, HTN, HLD, bipolar disorder. Patient presented due to significant dyspnea on exertion, dizziness, pleuritic chest pain, and O2 levels in the 80s at home. She does have oxygen as needed at home which she has not used in several days. Patient was found to have hemoglobin drop from 8.4- 7.4 suspected to be due to current menses which patient stated is heavy. Hemoccult negative. Patient seen at bedside with her partner present. She endorses the above. She stated that over the past few days she has had dyspnea on exertion and it hurts to take a deep breath. She also endorses fatigue. she stated that her periods used to be regular however her past few have been extremely heavy and lasting for up to 2 weeks. She is currently on day 2 of her current menses and stated it is extremely heavy. She is following with [facility] for potential IUD. She has 1+ pitting edema to bilateral lower extremities which she stated started a few days ago. Her recent diet has been at her baseline, she had beef stew, sloppy [employer], and hot dogs recently. She also stated she feels like her Bumex is not working as well as she is not peeing as much. CXR personally reviewed and appears to be without any pleural effusions, however official radiologist read pending at this time. She denies any abdominal pain, vomiting, diarrhea, melena, hematochezia. She was a former smoker and quit in 2022. She denies alcohol use. She uses 2L oxygen at night with her CPAP and has a portable oxygen machine which she last used several weeks ago. She did take all of her evening medications. She wishes to be full code, however would not want repeated resuscitation or long- term ventilation. History of iron transfusions (most recent 2 years ago), has had a history of 1 blood transfusion and approximately 2009. Iron panel 03/10 showed iron 20, TIBC 552, ferritin 4.6patient is scheduled for iron transfusion next week. Discharge Plan Discharge Items Patient Disposition: Home - Self-Care Reason For Visit: ANEMIA, DYSPNEA Discharge Diagnosis: Symptomatic iron deficiency anemia, menorrhagia Activity: Resume your previous activity Non-emergency contact: Primary Care Provider Call non-emergency contact if: your symptoms worsen Follow-up/Referrals: Faye Kimball DO [Primary Care Provider] - Diet: Carb Consistent or DM2 Addtl Attending Provider Instructions: Stop Xarelto (rivaroxaban). Take ferrous sulfate 325 mg twice daily for iron. A prescription has been sent to [facility] pharmacy in [place] Pending Studies at Discharge: No Stand-Alone Forms: [facility] C[facility] Medications and DC Order Prescriptions: New ferrous sulfate 325 mg (65 mg iron) Tablet,Delayed Release (Dr/Ec) 325 mg PO BIDM Qty: 60 0RF Continued diltiazem HCl [Cardizem CD] 300 mg capsule,extended release 24hr 300 mg PO QAM Qty: 90 3RF metoprolol tartrate 50 mg tablet 50 mg PO BID Qty: 180 3RF ipratropium-albuterol 0.5 mg-3 mg(2.5 mg base)/3 mL solution for nebulization 3 ml inhalation QID PRN (Reason: Shortness Of Breath) Qty: 360 2RF oxycodone-acetaminophen [Percocet] 5-325 mg tablet 1 tab PO QID PRN (Reason: pain) 30 Days Qty: 90 0RF epinephrine 0.3 mg/0.3 mL auto-injector 0.3 mg IM Q10M PRN (Reason: Allergic Reaction) Rx Instructions: for 2 doses Hizentra 1 gram/5 mL (20 %) solution 70 ml subcut WK Patient Comments: on wednesdays Rx Instructions: SUNDAYS levothyroxine 137 mcg capsule 137 mcg PO QAM fluticasone propionate 50 mcg/actuation spray,suspension 1 spray intranasal QAM Rx Instructions: administer into each nostril albuterol sulfate 90 mcg/actuation HFA aerosol inhaler 2 puff inhalation Q6H PRN (Reason: Shortness Of Breath) famotidine 20 mg tablet 20 mg PO BID benzonatate 100 mg capsule 100 mg PO BID PRN (Reason: Cough) citalopram [Celexa] 10 mg tablet 10 mg PO QAM diclofenac sodium 1 % gel 2 g topical QID PRN (Reason: Pain) Rx Instructions: apply to single elbow, wrist or hand; for hand includes palm/fingers/back of hand ipratropium bromide 42 mcg (0.06 %) spray,non-aerosol 2 spray intranasal QID PRN (Reason: Congestion) Rx Instructions: administer into each nostril triamcinolone acetonide 0.5 % cream 1 applic topical DAILY PRN (Reason: Skin Irritation) naloxone [Narcan] 4 mg/actuation spray,non-aerosol 4 mg intranasal Q2M PRN (Reason: opioid overdose) Qty: 2 0RF Rx Instructions: spray 1 dose into ONE nostril; alternate nostrils w each dose until help arrives pantoprazole [Protonix] 40 mg tablet,delayed release (DR/EC) 40 mg PO QAM (DME) Space Chamber Spacer See Rx Instructions .Route Qty: 1 0RF Rx Instructions: As directed Susanjohns[employer]ung Aerosphere 160-9-4.8 mcg/actuation HFA aerosol inhaler 2 inh inhalation BID Qty: 10.7 2RF ondansetron HCl 8 mg tablet 8 mg PO Q8H PRN (Reason: Nausea) Qty: 30 3RF bumetanide 1 mg tablet 1 mg PO QAM Qty: 90 3RF montelukast [Singulair] 10 mg tablet 10 mg PO QPM Qty: 90 3RF potassium chloride 20 mEq Packet 20 meq PO DAILY Patient Comments: per pt she mixes with juice once a day when she remembers loratadine [Claritin] 10 mg Tablet 10 mg PO QAM bupropion HCl 150 mg Tablet Extended Release 24 Hr 150 mg PO BID gabapentin 400 mg capsule 300 mg PO QID olanzapine 5 mg tablet 5 mg PO DAILY PRN (Reason: Agitation) hydroxyzine pamoate 50 mg Capsule 50 mg PO BID PRN (Reason: Anxiety) olanzapine 15 mg tablet 15 mg PO HS Ozempic 0.25 mg or 0.5 mg (2 mg/3 mL) pen injector 0.5 mg subcut WK Rx Instructions: TUESDAYS Discontinued Xarelto 20 mg tablet 20 mg PO QPM Qty: 90 3RF Rx Instructions: must administer with evening meal Discharge Orders: Discharge Order (Routine); Ordered 03/22/25 Ordered By: Valentino Adam Admission Data Admit Date/Time: 03/22/25 02:02 Attending Provider: Valentino Adam Admit Provider: Elizabeth Méndez Primary Care Provider: Faye Kimball Other Providers: Elizabeth Méndez Hospital Stay Data Consultations 03/22/25 00:56 ED Decision to Admit Stat Pending Results Patient Have Any Pending Studies at Discharge: No Discharge Instructions Given to Patient (Per Discharging Provider) Stop Xarelto (rivaroxaban). Take ferrous sulfate 325 mg twice daily for iron. A prescription has been sent to [facility] pharmacy in [place] Total Time Total Time Spent Total Time Spent (In Minutes): 45 minutes Coding Level of Care Code 45763 INP/OBS DISCH >30 MIN Diagnoses Iron deficiency anemia D50.9 Menorrhagia N92.0 Dyspnea on exertion R06.09 CHF (congestive heart failure) I50.9
[2025-03-22 11:52] VITALS: BP 142/84; PULSE 86; RESP 16; TEMP 97.7
--- NOTE | 2025-03-22 12:59 | Electrocardiogram Report ---
Test Reason : Blood Pressure : */* mmHG Vent. Rate : 89 BPM Atrial Rate : 89 BPM P-R Int : 188 ms QRS Dur : 98 ms QT Int : 364 ms P-R-T Axes : 44 -11 16 degrees QTcB Int : 442 ms Normal sinus rhythm RSR' or QR pattern in V1 suggests right ventricular conduction delay Borderline ECG When compared with ECG of 12-Feb-2025 18:18, Nonspecific T wave abnormality, improved in Anterior leads Confirmed by Mike Skinner ([id number]) on 03/22/2025 12:58:40 PM Referred By: REFERRED SELF Confirmed By: Mike Skinner
[2025-03-22 13:16] LABS: Hematocrit (blood only) 28.3 % (37.0-47.0); Hemoglobin 8.5 g/dl (12.0-16.0)
[2025-03-22] MEDS ORDERED: RIVAROXABAN 20 MG TAB PO SCH (16:30)
[2025-03-22] MEDS ORDERED: FERROUS SULFATE 325 MG TAB PO SCH (17:00)
[2025-03-22] MEDS ORDERED: OLANZapine 5 MG TABLET PO SCH (21:00)
[2025-03-22] MEDS ORDERED: MONTELUKAST SODIUM 10 MG TABLET PO SCH (21:00)
[2025-03-23] MEDS ORDERED: BUMETANIDE 1 MG TAB PO SCH (09:00)
== END 2025-03-22 13:44 | disposition home or self-care (01) ==
LOC: ED 22:45 → 2N 22:45 → SUATTDRO 03-22 02:02 → 2N 03-22 03:15

== ENCOUNTER 2025-08-21 22:59 | Inpatient (IN) ==
--- NOTE | 2025-08-21 23:16 | Emergency Department Note ---
Impression & Plan Hyponatremia, Dizziness, Hypomagnesemia, Fall, Acute alteration in mental status, Laceration of right lower leg ED Provider Note CHIEF COMPLAINT: Fall, leg laceration HISTORY OF PRESENTING ILLNESS: This 45-year-old female patient presents to the emergency department with her significant other for evaluation after a fall. The patient states that she fell in the kitchen and obtained a large laceration to her right calf. The patient the patient states that she has a history of intermittent episodes of dizziness from her COPD. The patient states that she was walking in the kitchen and had one of her dizzy episodes, tripped, and fell. The patient is unsure if she hit her head on the way down, but denies loss of consciousness. The patient is not really sure what she cut her leg on because they could not find anything in the kitchen that would have been sharp enough. The patient has a large laceration to the calf that was bandaged prior to arrival. The patient is complaining of a headache. The patient's significant other also states that she seems a little off. The patient has chronic nausea and is on Zofran, but no vomiting. The patient has had recent adjustments in her diuretics as an outpatient. Denies chest pain, shortness of breath, or abdominal pain. She is having some upper back pain from the fall. Denies any new low back pain. She denies any pain in the bones of the leg. She is still able to walk. Her last tetanus shot was 07/26/2017. The patient is low longer on blood thinners over the past year. REVIEW OF SYSTEMS: See HPI for pertinent positives and pertinent negatives. ALLERGIES: See below MEDICATIONS: See below PAST MEDICAL HISTORY: See below PHYSICAL EXAM: PRIMARY SURVEY Airway: Intact and patent. Breathing: Trachea midline. Symmetrical chest movement. Breath sounds equal bilaterally. No respiratory distress. Circulation: Skin warm, capillary refill <2 seconds. Disability: PERRLA. Able to move all extremities. SECONDARY SURVEY VITALS: Vitals are noted on the nurse's note and reviewed by myself. GENERAL: No acute distress, non-diaphoretic. SKIN: The patient has a 7.5 cm horizontal laceration to the anterior aspect of the right lower extremity. The laceration tracks somewhat distally, but superficial to the subcutaneous tissue. The laceration does not extend past the subcutaneous tissue. No deep structures injured within the base of the wound. No foreign bodies noted. Mild intermittent active bleeding. Capillary reflex less than 2 seconds. HEAD: Normocephalic. No scalp tenderness or step-offs felt. EARS: Bilateral external auditory canals clear without tragus tenderness. Bilateral tympanic membranes pearly hillman without erythema or effusion. No mastoid tenderness bilaterally. No hemotympanum. No vera sign. EYES: The right pupil is slightly larger than the left pupil, but they are both reactive. The patient's significant other does not recall her pupils being unequal in the past. Funduscopic exam without obvious hemorrhages or papilledema. Conjunctivae without injection, sclerae without icterus. Extraocular movements intact without pain. No nystagmus. NOSE: Patent without discharge. No sinus tenderness. No septal hematoma or bleeding. FACE: No facial bone tenderness. Full range of motion of the jaw without tenderness. MOUTH: Mucous membranes moist. Pharynx without erythema or exudate. Uvula midline. Airway patent. Tongue does not deviate. NECK: Supple without nuchal rigidity. Cervical spine is nontender. Full range of motion of the neck without tenderness. HEART: Regular rate and rhythm without murmurs gallops or rubs. LUNGS: Clear to auscultation bilaterally with a few scattered wheezes, but no rales or rhonchi. No retractions or accessory muscle use. CHEST: No chest wall tenderness. ABDOMEN: Positive bowel sounds x 4. Normal tympanic percussion. Soft, nontender, without masses or organomegaly. No guarding or rebound tenderness. MUSCULOSKELETAL: The patient is tender to palpation over the mid to distal thoracic spine and paraspinal muscles. She is also tender to palpation of the bilateral trapezius muscles. No tenderness to palpation of the lumbar spine or paraspinal muscles. No tenderness with pelvic rocking. The patient is mildly tender to palpation over the right tib-fib in the area of the laceration. Full range of motion without tenderness to palpation in all remaining extremities. Strength 5/5 throughout. Peripheral pulses 2+. NEURO: The patient seems a little sleepy, but is alert and oriented to person, place, and time. Normal mental status exam. Normal sensation to light and sharp touch. No focal neurological deficits. DIFFERENTIAL DIAGNOSIS: Differential diagnosis includes concussion, contusion, fracture, subluxation, dislocation, subdural hematoma, epidural hematoma, intraparenchymal hemorrhage, contusion, ligamentous injury, neurovascular, compartment syndrome, rhabdomyolysis, intra-abdominal injury, splenic rupture, hepatic rupture, rib fractures, cardiac contusion, pneumothorax, hemothorax, cardiac tamponade, intrathoracic injury, neurologic, benign positional vertigo, dehydration, hypovolemia, anemia, tumor, infection, hypoglycemia, electrolyte abnormalities, cardiac sources, intracerebral event, toxicologic, neurologic, as well as other pathologies. ED COURSE AND MEDICAL DECISION MAKING: HISTORY FROM INDEPENDENT HISTORIAN: Additional history was obtained from the patient's significant other. MEDICATIONS GIVEN: 500 mL normal saline solution bolus. Tylenol 1000 mg IV. DuoNeb treatment. Magnesium 1 g IV. MONITOR: Continuous quality assurance monitor final: Order was placed for continuous quality assurance monitor final. Patient was placed on the quality assurance monitor final and continuous pulse ox. Patient was noted to be in normal sinus rhythm at an initial rate of 80 bpm per my interpretation. EKG: EKG was interpreted by myself as normal sinus rhythm at 80 bpm with no acute ST or T wave changes. INTERPRETATION OF LABS: I interpreted the labs with full lab results as below in the lab section of this note. Laboratory results pertinent to the emergent complaint are discussed in the MDM section below. The patient was advised to follow up with their PCP and/or specialist(s) for further outpatient monitoring and management of any abnormal results. INTERPRETATION OF IMAGING: Imaging studies were interpreted by myself and read by radiology as per the imaging section of this note. The patient was advised to follow up with their PCP and/or specialist(s) for further outpatient management of any non-emergent abnormal findings. CT scan of the head without contrast was negative for acute intracranial abnormality. CT scan of the cervical spine without contrast was negative for acute fracture or subluxation. There are degenerative changes and cervical spondylosis. CTA of the head and neck with IV contrast showed no evidence for stenosis, aneurysm, dissection, CVA, or other acute abnormalities. There is atherosclerotic calcifications involving the bilateral carotid bulbs without significant stenosis. CT scan of the thoracic spine with IV contrast shows thoracic spondylosis with no fracture or dislocation. CT of the chest with IV contrast shows a calcified granuloma in the right upper lobe which appears stable. Ill-defined ground glass opacification involving both upper lobes which could be sequela of prior infection, but appears reduced as compared to prior study. No obvious PE or other acute traumatic abnormalities. X-rays of the right tib-fib were negative for acute fracture or dislocation and no evidence of foreign body. CONSULTATIONS: On-call hospitalist PROCEDURES: Risks and benefits of the procedure were discussed. Verbal consent was obtained to perform the procedure and the procedure was performed by myself and Meg JOHNSON under my direct supervision. Using sterile technique the wound was cleaned with Betadine. The area was sterilely draped. 10 ml of 1% lidocaine with epi was used to anesthetize the wound. Once the patient was anesthetized, the wound was copiously irrigated under pressure with sterile saline. The wound was explored and was as described above. The laceration was repaired using 6 horizontal mattress 4-0 nylon sutures with the wound edges being well approximated. The patient tolerated the procedure well. Hemostasis was achieved. The area was cleaned with sterile saline and dressed with bacitracin ointment and bandage. CRITICAL CARE: I have personally spent 45 minutes of critical care time in the direct management of this patient. This includes bedside care, interpretation of diagnostic studies, and testing, discussion with consultants, patient, and family members, and other required patient management activities. This 45 minutes is in excess of all separately billable procedures. MDM SUMMARY: I examined the patient. The patient states that she frequently has intermittent episodes of dizziness from her COPD. She had a dizzy episode today causing her to fall in the kitchen. With the fall in the kitchen she lacerated the right lower extremity, but does not know what she cut it on. She is unsure if she hit her head, but does not believe she had loss of consciousness. The patient significant other states that she seemed a little off today especially since the fall. The patient's right pupil appears slightly larger than the left pupil, but they are both reactive. The patient and her significant other do not believe her pupils were unequal previously. The patient denies using any eyedrops or other medications which may affect her pupils. Given the patient's dizziness, fall, slightly unequal pupils, and alteration in mental status per the patient's significant other, a more significant workup was initiated. An IV lock was placed and labs were drawn. The patient was given 500 mL normal saline solution bolus and Tylenol 1000 mg IV for her pain. The patient was given a DuoNeb treatment for wheezing on exam. White blood cell count normal at 7.45. Hemoglobin low at 11.6. Platelet count normal at 153. Coags were normal. The patient's sodium is significantly low at 119. Potassium normal at 3.5. Glucose 127, calcium 8.2, AST 90, and globulin 2.3, but CMP otherwise normal. High-sensitivity troponin normal. Magnesium low at 1.5 and the patient was given 1 g magnesium supplement. Urinalysis without evidence for infection. CT scan of the head without contrast was negative for acute intracranial abnormality. CT scan of the cervical spine without contrast was negative for acute fracture or subluxation. There are degenerative changes and cervical spondylosis. CTA of the head and neck with IV contrast showed no evidence for stenosis, aneurysm, dissection, CVA, or other acute abnormalities. There is atherosclerotic calcifications involving the bilateral carotid bulbs without significant stenosis. CT scan of the thoracic spine with IV contrast shows thoracic spondylosis with no fracture or dislocation. CT of the chest with IV contrast shows a calcified granuloma in the right upper lobe which appears stable. Ill-defined ground glass opacification involving both upper lobes which could be sequela of prior infection, but appears reduced as compared to prior study. No obvious PE or other acute traumatic abnormalities. X-rays of the right tib-fib were negative for acute fracture or dislocation and no evidence of foreign body. The patient's large right lower extremity laceration was repaired as above. I suspect that the patient's significant hyponatremia is likely contributing to her dizziness and the fall as well as her change in mental status. The patient significant other states that they have been adjusting her diuretics recently. The patient had been given 500 mL normal saline solution bolus initially prior to lab results, but no additional IV fluids were given after the results of the sodium were received. I had a meaningful discussion about this patient with Dr. Kign who agrees with my assessment and the treatment plan. The patient will require admission for further evaluation and treatment. I spoke with the on- call hospitalist who agreed to admit the patient for further evaluation and treatment. The patient's care was transferred in stable condition. DIAGNOSIS: Severe hyponatremia Hypomagnesemia Dizziness Fall Altered mental status Right lower extremity laceration Past Med/Surg History Problem List (Updated 08/22/25 @ 06:38 by John Huggins MD) Asthma exacerbation in COPD Pneumonia Hyponatremia Asthma (Acute) Dyspnea on exertion Abnormal CT scan, chest Oral thrush Allergic asthma Pain due to intrauterine contraceptive device (IUD) Chronic constipation Endometrial mass Vaginal bleeding (Acute) Anemia (Acute) Menorrhagia Iron deficiency anemia Lumbar radiculopathy Severe persistent asthma Dysphagia History of DVT (deep vein thrombosis) DARWIN (obstructive sleep apnea) Multiple pulmonary nodules determined by computed tomography of lung Adverse effect of prednisone CVID (common variable immunodeficiency) Benign essential hypertension Atherogenic dyslipidemia Morbid obesity with BMI of 40.0-44.9, adult Chronic back pain GERD (gastroesophageal reflux disease) Hypothyroidism Diabetes mellitus, type 2 Basal cell carcinoma above left eye Schizo affective schizophrenia Bipolar disorder Post traumatic stress disorder Migraine On home oxygen therapy 4L via CPAP at hs only Chronic obstructive pulmonary disease Asthma inhaler daily/prn, nebulizer prn Medical History Acute exacerbation of CHF (congestive heart failure) Hypokalemia Acute exacerbation of CHF (congestive heart failure) Pneumonitis Asthma exacerbation CAD (coronary artery disease) Vaginal bleeding Menorrhagia History of blood transfusion (04/2025) Hx of basal cell carcinoma Atherogenic dyslipidemia Benign essential hypertension CVID (common variable immunodeficiency) History of MRSA infection of lungs (2006) Iron deficiency anemia History of dyspnea Hx of deep venous thrombosis (~2021) Dysphagia CHF (congestive heart failure) History of COVID-19 Anxiety disorder Schizo affective schizophrenia PTSD (post-traumatic stress disorder) DARWIN (obstructive sleep apnea) On home oxygen therapy Multiple pulmonary nodules determined by computed tomography of lung Hx of migraines Hx of esophagitis Hypothyroidism GERD (gastroesophageal reflux disease) Diabetes mellitus, type 2 COPD (chronic obstructive pulmonary disease) Chronic back pain Bipolar disorder Asthma History of anemia History of thyroid cancer Hyperlipidemia History of pneumonia (~2016) Surgical History Hx of hernia repair (2021) History of lung surgery (2006) History of foot surgery History of lumbar surgery (~07/19/04) History of colonoscopy History of esophagogastroduodenoscopy (EGD) History of cholecystectomy (~2015) History of basal cell carcinoma (BCC) excision History of tooth extraction S/P thyroid biopsy History of thyroidectomy, total (~2017) History of cardiac cath (~2017) Family History Mother Family history of diabetes mellitus Grandfather (Maternal) Family hx of colon cancer Grandfather (Maternal) Colorectal cancer Other No family history of adverse response to anesthesia Denies family history of Ovarian cancer Prostate cancer Myocardial infarction Breast cancer Social History Smoking Status: Never smoker Tobacco Type: Cigarettes Age Started Using Tobacco: 17; Age Quit Using Tobacco: 42; packs per day: 1; Second Hand Exposure: No; Do You Dip or Chew Tobacco: No; Hx Alcohol Use: Yes Alcohol type: beer Hx Substance Use: No Preferred Language: Irish Communication Ability: Effective Visual Impairment: No Limitations Hearing Ability: Normal 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 Beliefs That Will Affect Care: None marital status: Life Partner Current Living Situation: Significant Other Current Living Situation Comment: partner current occupational status: disabled Feels Safe at Home: Yes Childhood Exposure to Second-Hand Smoke: Yes Dental Care, Regularly: No Physical Activity Frequency: Daily Seatbelt Use: sometimes Sunscreen Use: No Assistive Devices: CPAP, Nebulizer and Oxygen - at Night Allergies Allergies Allergy/AdvReac Type Severity Reaction Status Date / Time clindamycin Allergy Mild Rash Verified 08/17/25 11:37 sulfamethoxazole Allergy Mild Rash Verified 08/17/25 11:37 [From Bactrim] trimethoprim [From Bactrim] Allergy Mild Rash Verified 08/17/25 11:37 vancomycin AdvReac Severe "shuts Verified 08/17/25 11:37 down my kidneys" promethazine [From Phenergan] AdvReac Intermediate muscle Verified 08/17/25 11:37 spams varenicline [From Chantix] AdvReac Intermediate "caused Verified 08/17/25 11:37 mental health issues" Home Meds Home Medications Medication Instructions Recorded Confirmed epinephrine 0.3 mg/0.3 mL 0.3 mg IM DIRECTED PRN Allergic 02/10/21 08/22/25 injection, auto-injector Reaction fluticasone propionate 50 2 spray intranasal QAM 02/10/21 08/22/25 mcg/actuation nasal spray,suspension immune glob G 1 gram/5 mL(20 70 ml subcut WK 02/10/21 08/22/25 %)-prol-IgA 0-50 mcg/mL subcutaneous soln (Hizentra) bupropion HCl 150 mg 24 hr tablet, 150 mg PO BID 02/14/21 08/22/25 extended release (Wellbutrin XL) loratadine 10 mg tablet (Claritin) 10 mg PO QAM 02/14/21 08/22/25 potassium chloride 20 mEq oral 20 meq PO DAILY 02/14/21 08/22/25 packet diclofenac sodium 1 % topical gel 2 g topical QID PRN Pain 07/14/24 08/22/25 gabapentin 600 mg tablet 600 mg PO QID 06/23/25 08/22/25 levonorgestrel 21 mcg/24 hr (up to 21 mcg intrauterine CONTINOUS 07/01/25 08/22/25 8 years) 52 mg intrauterine device (Mirena) atorvastatin 20 mg tablet 20 mg PO HS 08/04/25 08/22/25 benzonatate 100 mg capsule 100 mg PO BID PRN Cough 08/04/25 08/22/25 docusate sodium 100 mg capsule 100 mg PO QDD 08/04/25 08/22/25 hydroxyzine pamoate 100 mg capsule 100 mg PO TID PRN Itching 08/04/25 08/22/25 mupirocin 2 % topical ointment 1 applic topical TID PRN Rash 08/04/25 08/22/25 nystatin 100,000 unit/gram topical 1 applic topical QID PRN Rash 08/04/25 08/22/25 ointment quetiapine 25 mg tablet 25 mg PO BID PRN Anxiety 08/04/25 08/22/25 quetiapine 100 mg tablet 100 mg PO QAM 08/09/25 08/22/25 quetiapine 300 mg tablet 300 mg PO HS 08/09/25 08/22/25 Previous Rx's Medication Instructions Recorded diltiazem HCl 300 mg 300 mg PO QAM #90 caps 11/10/24 capsule,extended release 24 hr (Cardizem CD) budesonide 160 mcg-glycopyr 9 2 inh inhalation BID #10.7 grams 01/04/25 mcg-formot 4.8 mcg/actuation HFA inhaler (Breztri Aerosphere) inhalational spacing device (Space #1 ea 01/04/25 Chamber) naloxone 4 mg/actuation nasal 4 mg intranasal Q2M PRN opioid 01/04/25 spray (Narcan) overdose #2 ea ondansetron HCl 8 mg tablet 8 mg PO Q8H PRN Nausea #30 tabs 02/09/25 montelukast 10 mg tablet 10 mg PO QPM #90 tabs 03/15/25 (Singulair) ipratropium bromide 42 mcg (0.06 2 spray intranasal QID PRN 04/15/25 %) nasal spray Congestion #15 mL metoprolol tartrate 50 mg tablet 50 mg PO BID #180 tabs 06/23/25 pantoprazole 40 mg tablet,delayed 40 mg PO BID #180 tabs 07/16/25 release (Protonix) levothyroxine 137 mcg capsule 137 mcg PO QAM #90 caps 07/20/25 oxycodone-acetaminophen 7.5 mg-325 1 tab PO QID PRN pain #90 tabs 07/26/25 mg tablet (Percocet) nebulizers #1 ea 08/02/25 albuterol 90 mcg-budesonide 80 2 inh inhalation QID PRN shortness 08/10/25 mcg/actuation HFA aerosol inhaler of breath #5.9 grams (Airsupra) bumetanide 1 mg tablet See Rx Instructions PO QAM #135 08/10/25 tabs tirzepatide 5 mg/0.5 mL 5 mg (0.5 mL) subcut .ONCE WEEKLY 08/10/25 subcutaneous pen injector #6 mL ipratropium 0.5 mg-albuterol 3 mg 3 ml inhalation QID PRN Shortness 08/16/25 (2.5 mg base)/3 mL nebulization Of Breath #360 mL soln Results & Data (ED) Vital Signs Vital Signs - 24 hr 08/21/25 23:05 08/21/25 23:17 08/21/25 23:21 Temperature 36.4 C L Temperature Source Temporal Artery Scan Pulse Rate 84 83 82 Pulse Rate [Apical] Pulse Rate from SpO2 Sensor 82 Pulse Rhythm Regular Pulse Strength Normal Respiratory Rate 18 20 Respiratory Effort / Characteristics Non-Labored Spontaneous Respiratory Depth Normal Respiratory Pattern Regular Blood Pressure 127/79 Blood Pressure [Right Arm] Blood Pressure Mean 95 Blood Pressure Mean [Right Arm] Blood Pressure Position Sitting Blood Pressure Position [Right Arm] Pulse Oximetry 97 93 Oxygen Delivery Method Room Air Sepsis Recent Fever Within 48 Hours No Sepsis New/Unexplained Change in Mental Status N/A Sepsis Action Taken by Nursing No Action Required 08/21/25 23:30 08/21/25 23:30 08/21/25 23:30 Temperature Temperature Source Pulse Rate 83 Pulse Rate [Apical] Pulse Rate from SpO2 Sensor 82 Pulse Rhythm Pulse Strength Respiratory Rate 19 Respiratory Effort / Characteristics Respiratory Depth Respiratory Pattern Blood Pressure 162/126 H 162/126 H Blood Pressure [Right Arm] Blood Pressure Mean 142 142 Blood Pressure Mean [Right Arm] Blood Pressure Position Blood Pressure Position [Right Arm] Pulse Oximetry 92 Oxygen Delivery Method Sepsis Recent Fever Within 48 Hours Sepsis New/Unexplained Change in Mental Status Sepsis Action Taken by Nursing 08/21/25 23:53 08/21/25 23:57 08/22/25 00:00 Temperature Temperature Source Pulse Rate 83 80 Pulse Rate [Apical] Pulse Rate from SpO2 Sensor 80 Pulse Rhythm Pulse Strength Respiratory Rate 16 15 15 Respiratory Effort / Characteristics Respiratory Depth Respiratory Pattern Blood Pressure Blood Pressure [Right Arm] Blood Pressure Mean Blood Pressure Mean [Right Arm] Blood Pressure Position Blood Pressure Position [Right Arm] Pulse Oximetry 94 94 Oxygen Delivery Method Room Air Sepsis Recent Fever Within 48 Hours Sepsis New/Unexplained Change in Mental Status Sepsis Action Taken by Nursing 08/22/25 00:00 08/22/25 00:00 08/22/25 00:12 Temperature Temperature Source Pulse Rate 82 Pulse Rate [Apical] Pulse Rate from SpO2 Sensor 81 Pulse Rhythm Pulse Strength Respiratory Rate 20 Respiratory Effort / Characteristics Respiratory Depth Respiratory Pattern Blood Pressure 112/73 112/73 Blood Pressure [Right Arm] Blood Pressure Mean 92 92 Blood Pressure Mean [Right Arm] Blood Pressure Position Blood Pressure Position [Right Arm] Pulse Oximetry 96 Oxygen Delivery Method Sepsis Recent Fever Within 48 Hours Sepsis New/Unexplained Change in Mental Status Sepsis Action Taken by Nursing 08/22/25 00:30 08/22/25 00:33 08/22/25 01:15 Temperature Temperature Source Pulse Rate 81 82 Pulse Rate [Apical] Pulse Rate from SpO2 Sensor 81 Pulse Rhythm Pulse Strength Respiratory Rate 7 L 16 Respiratory Effort / Characteristics Respiratory Depth Respiratory Pattern Blood Pressure 122/76 Blood Pressure [Right Arm] Blood Pressure Mean 104 Blood Pressure Mean [Right Arm] Blood Pressure Position Blood Pressure Position [Right Arm] Pulse Oximetry 94 Oxygen Delivery Method Sepsis Recent Fever Within 48 Hours Sepsis New/Unexplained Change in Mental Status Sepsis Action Taken by Nursing 08/22/25 01:30 08/22/25 01:30 08/22/25 01:33 Temperature Temperature Source Pulse Rate 80 Pulse Rate [Apical] Pulse Rate from SpO2 Sensor Pulse Rhythm Pulse Strength Respiratory Rate 22 Respiratory Effort / Characteristics Respiratory Depth Respiratory Pattern Blood Pressure 120/87 120/87 Blood Pressure [Right Arm] Blood Pressure Mean 98 98 Blood Pressure Mean [Right Arm] Blood Pressure Position Blood Pressure Position [Right Arm] Pulse Oximetry 94 Oxygen Delivery Method Sepsis Recent Fever Within 48 Hours Sepsis New/Unexplained Change in Mental Status Sepsis Action Taken by Nursing 08/22/25 01:42 08/22/25 01:51 08/22/25 02:00 Temperature Temperature Source Pulse Rate 81 82 82 Pulse Rate [Apical] Pulse Rate from SpO2 Sensor Pulse Rhythm Pulse Strength Respiratory Rate 25 H 15 15 Respiratory Effort / Characteristics Respiratory Depth Respiratory Pattern Blood Pressure Blood Pressure [Right Arm] Blood Pressure Mean Blood Pressure Mean [Right Arm] Blood Pressure Position Blood Pressure Position [Right Arm] Pulse Oximetry Oxygen Delivery Method Sepsis Recent Fever Within 48 Hours Sepsis New/Unexplained Change in Mental Status Sepsis Action Taken by Nursing 08/22/25 02:00 08/22/25 02:00 08/22/25 02:12 Temperature Temperature Source Pulse Rate 83 Pulse Rate [Apical] Pulse Rate from SpO2 Sensor Pulse Rhythm Pulse Strength Respiratory Rate 17 Respiratory Effort / Characteristics Respiratory Depth Respiratory Pattern Blood Pressure 131/88 131/88 Blood Pressure [Right Arm] Blood Pressure Mean 95 95 Blood Pressure Mean [Right Arm] Blood Pressure Position Blood Pressure Position [Right Arm] Pulse Oximetry Oxygen Delivery Method Sepsis Recent Fever Within 48 Hours Sepsis New/Unexplained Change in Mental Status Sepsis Action Taken by Nursing 08/22/25 02:21 08/22/25 02:27 08/22/25 02:30 Temperature Temperature Source Pulse Rate 82 82 Pulse Rate [Apical] Pulse Rate from SpO2 Sensor Pulse Rhythm Pulse Strength Respiratory Rate 20 14 Respiratory Effort / Characteristics Respiratory Depth Respiratory Pattern Blood Pressure 123/90 Blood Pressure [Right Arm] Blood Pressure Mean 101 Blood Pressure Mean [Right Arm] Blood Pressure Position Blood Pressure Position [Right Arm] Pulse Oximetry Oxygen Delivery Method Sepsis Recent Fever Within 48 Hours Sepsis New/Unexplained Change in Mental Status Sepsis Action Taken by Nursing 08/22/25 02:36 08/22/25 03:31 08/22/25 03:44 Temperature Temperature Source Pulse Rate 80 78 Pulse Rate [Apical] 78 Pulse Rate from SpO2 Sensor Pulse Rhythm Pulse Strength Respiratory Rate 22 14 Respiratory Effort / Characteristics Non-Labored Spontaneous Respiratory Depth Normal Respiratory Pattern Regular Blood Pressure Blood Pressure [Right Arm] 120/84 Blood Pressure Mean Blood Pressure Mean [Right Arm] 96 Blood Pressure Position Blood Pressure Position [Right Arm] Semi-fowlers Pulse Oximetry 92 96 Oxygen Delivery Method Room Air Sepsis Recent Fever Within 48 Hours Sepsis New/Unexplained Change in Mental Status Sepsis Action Taken by Nursing Laboratory Data 08/22/25 00:01 08/22/25 04:55 Lab Results 08/22/25 08/22/25 08/22/25 Range/Units 00:01 00:03 03:30 WBC 7.45 (4.8-10.8) K/ul RBC 4.08 L (4.20-5.40) M/uL Hgb 11.6 L (12.0-16.0) g/dl POC Hgb 12.2 (12.0-16.0) g/dl Hct 33.1 L (37.0-47.0) % POC Hct 36 L (37-47) % MCV 81.1 (80.0-100.0) fL MCH 28.4 (25.0-34.0) pg MCHC 35.0 (32.0-36.0) g/dL RDW Std Deviation 44.2 (36.4-46.3) fL RDW Coeff of Shen 15.0 H (11.5-14.5) % Plt Count 153 (130-400) K/uL MPV 9.4 (9.4-12.4) fL Immature Gran % (Auto) 0.4 % Neut % (Auto) 69.2 % Lymph % (Auto) 18.8 % [place] % (Auto) 8.1 % Eos % (Auto) 3.1 % Baso % (Auto) 0.4 % Neut # (Auto) 5.16 (1.40-6.50) K/uL Lymph # (Auto) 1.40 (1.20-3.40) K/uL [place] # (Auto) 0.60 H (0.11-0.59) K/uL Eos # (Auto) 0.23 (0.00-0.50) K/uL Baso # (Auto) 0.03 (0.00-0.20) K/uL Immature Gran # (Auto) 0.03 (0.01-0.20) K/uL PT 11.2 (9.0-12.0) Seconds INR 1.1 (0.9-1.1) APTT 25 (21-31) Seconds PTT Ratio 0.9 POC Sodium 119 L* (135-144) mmol/L Sodium 119 L* (136-145) mmol/L POC Potassium 3.4 (3.3-5.0) mmol/L Potassium 3.5 (3.5-5.1) mmol/L POC Chloride 80 L (101-112) mmol/L Chloride 82 L (98-107) mmol/L Carbon Dioxide 28 (21-32) mmol/L POC Total CO2 28 (24-31) mmol/L Anion Gap 9 (3-11) POC Anion Gap 15.0 L (16-25) mmol/L POC BUN 5 L (7-18) mg/dl BUN 7 (6-23) mg/dl Creatinine 1.09 (0.6-1.2) mg/dl POC Creatinine 1.2 (0.6-1.3) mg/dl Est Cr Clr Drug Dosing Not Reportable eGFR 63.85 BUN/Creatinine Ratio 6.4 L (10-20) Glucose 127 H (70-99(Fasting)) mg/dl POC Glucose (other) 129 H (70-99) mg/dl Osmolality 249 L (280-300) mOsm/kg Calcium 8.2 L (8.6-10.3) mg/dl POC Ioniz Calcium Eriberto 1.05 L (1.12-1.32) mmol/l Magnesium 1.5 L (1.7-2.4) mg/dl Total Bilirubin 0.2 (0.2-1.0) mg/dl AST 90 H (13-39) U/L ALT 40 (7-52) U/L Alkaline Phosphatase 76 (34-104) U/L Troponin I High Sens 6.7 (0-14) pg/ml Total Protein 6.1 (6.0-8.3) gm/dl Albumin 3.8 (3.4-5.0) gm/dl Globulin 2.3 L (2.5-4.0) gm/dl Albumin/Globulin Ratio 1.7 (0.9-2) Urine Color Yellow Urine Appearance Clear (Clear) Urine pH 5.5 (4.5-7.5) Ur Specific [place] 1.010 (1.000-1.030) Urine Protein Negative (Negative) Urine Glucose (UA) Negative (Negative) Urine Ketones Negative (Negative) Urine Blood Trace H (Negative) Urine Nitrite Negative (Negative) Urine Bilirubin Negative (Negative) Urine Urobilinogen Negative (Negative) Ur Leukocyte Esterase Negative (Negative) Urine WBC (Auto) 0-5 (0-5) /hpf Urine RBC (Auto) 0-2 (0-2) /hpf U Hyaline Cast (Auto) 0-2 (0-2) /lpf U Epithel Cells (Auto) 0-2 (0-2) /hpf Urine Bacteria (Auto) None Seen (None Seen) Urine Osmolality 97 L (500-800) mOsm/kg Urine Comment Administered Medications Discontinued Medications Albuterol (Albut/Ipratrop 3mg/0.5mg Neb 3 Ml Vial) 3 ml NEB NOW STA; Protocol Stop: 08/22/25 02:16 Last Admin: 08/22/25 02:22 Dose: 3 ml Documented By: CHINTAN Sodium Chloride (Nss) 500 mls @ 999 mls/hr IV .Q31M ONE Stop: 08/22/25 00:23 Last Infusion: 08/22/25 01:01 Dose: Infused Documented By: Admin: 08/22/25 00:10 Dose: 999 mls/hr Documented By: CHINTAN Acetaminophen (Ofirmev) 1,000 mg in 100 mls @ 400 mls/hr IV NOW STA Stop: 08/22/25 00:07 Last Infusion: 08/22/25 01:01 Dose: Infused Documented By: Admin: 08/22/25 00:10 Dose: 400 mls/hr Documented By: CHINTAN Magnesium Sulfate/Dextrose (Magnesium Sulfate / D5w) 1 gm in 100 mls @ 100 mls/hr IV NOW STA Stop: 08/22/25 03:17 Last Infusion: 08/22/25 03:31 Dose: Infused Documented By: Admin: 08/22/25 02:22 Dose: 100 mls/hr Documented By: CHINTAN Magnesium Sulfate/Dextrose (Magnesium Sulfate / D5w) 1 gm in 100 mls @ 50 mls/hr IV ONE ONE Stop: 08/22/25 06:05 Last Admin: 08/22/25 04:57 Dose: 50 mls/hr Documented By: EMB Sodium Chloride (Hypertonic Saline 3%) 100 mls @ 600 mls/hr IV .Q10M ONE; Protocol Stop: 08/22/25 04:16 Last Infusion: 08/22/25 04:53 Dose: Infused Documented By: ANDI Co-signed By: EVELYNE Admin: 08/22/25 04:40 Dose: 600 mls/hr Documented By: ANDI Co-signed By: EVELYNE Cefepime HCl (Maxipime 2000mg) 2,000 mg in 20 mls @ 5 mls/min IV NOW STA; Protocol Stop: 08/22/25 04:21 Last Admin: 08/22/25 04:36 Dose: 5 mls/min Documented By: ANDI Azithromycin (Zithromax) 500 mg in 255 mls @ 127.5 mls/hr IV NOW STA Stop: 08/22/25 06:18 Last Admin: 08/22/25 04:58 Dose: 127.5 mls/hr Documented By: ANDI Ioversol (Optiray 320 125ml) 120 ml IV ONCE ONE Stop: 08/22/25 00:03 Last Admin: 08/22/25 00:03 Dose: 120 ml Documented By: LORENA Lidocaine/Epinephrine (Lidocaine 1%/Epinephrine 1:100,000 50 Ml Vial) 5 ml INFIL NOW ONE Stop: 08/21/25 23:54 Last Admin: 08/22/25 02:10 Dose: 5 ml Documented By: MARY Methylprednisolone (Methylprednisolone 125 Mg/2 Ml Vial) 125 mg IV NOW STA Stop: 08/22/25 04:05 Last Admin: 08/22/25 04:31 Dose: 125 mg Documented By: ANDI Imaging Data Radiologist's Impression: Cervical Spine CT 08/21/25 23:53 EXAM: CT cervical spine wo con CLINICAL HISTORY: Dizziness, headache, fall, unequal pupils TECHNIQUE: Computed tomography of the cervical spine was performed without intravenous contrast. Contiguous axial images were obtained from the skull base to T2, with sagittal and coronal reformatted images reconstructed from the axial data. The CT scan was performed according to ALARA (as low as reasonably achievable). COMPARISON: None. FINDINGS: There is loss of cervical lordosis, suggesting the possibility of muscle spasm or positional change. Degenerative changes involving the cervical spine are present in the form of multilevel marginal osteophytes, disc space reduction, and facetal arthrosis. The cervical vertebral bodies are normal in height and alignment, with no evidence of fracture or subluxation. The lateral masses of C1 are symmetrical, and the dens is intact. Prevertebral soft tissues are not widened. The remaining suprahyoid and infrahyoid soft tissues in the neck are unremarkable. Posterior uncovertebral arthrosis is noted at the C4-C5 and C5-C6 levels, which is indenting the ventral thecal sac and causing bilateral neuroforaminal narrowing. The thyroid gland appears unremarkable. IMPRESSION: 1. No acute fracture or subluxation in the cervical spine. 2. Cervical spondylosis. Electronically signed by Jose De Jesus Rodríguez 08-22-2025 01:[address] 08/21/25 23:53 EXAM: CT head/brain wo con CLINICAL HISTORY: Dizziness, headache, fall, unequal pupils TECHNIQUE: Multiple axial images were obtained from the skull base to the vertex without contrast. CT scan was performed according to ALARA (as low as reasonably achievable). COMPARISON: None. FINDINGS: The brain demonstrates normal morphology, attenuation, and volume for age. No evidence of a space-occupying lesion, hemorrhage, edema, mass effect, midline shift, extra-axial collection, or hydrocephalus is noted. The ventricles, sulci, and basal cisterns are symmetric and normal in size and configuration. The hillman-white matter differentiation is preserved. The visualized paranasal sinuses and mastoid air cells are well aerated. The orbital contents are within normal limits. The bony structures are intact. IMPRESSION: 1. No evidence of acute intracranial abnormality is demonstrated. Electronically signed by Jose De Jesus Rodríguez 08-22-2025 01:15 AM Head CTA 08/21/25 23:53 EXAM: CT angio head w con CLINICAL HISTORY: Dizziness, headache, fall, unequal pupils TECHNIQUE: Contrast-enhanced thin-slice CT angiography scan of the cerebral vessels was performed with intravenous contrast. Angiographic images were processed, and 3D MIP images were acquired for interpretation. Contiguous axial images were obtained. Reformatted coronal and sagittal images were also reviewed. If IV contrast material had not been administered, the likelihood of detecting abnormalities relevant to the patient's condition would have been substantially decreased. The CT scan was performed according to ALARA (as low as reasonably achievable). COMPARISON: None. FINDINGS: Bilateral internal carotid arteries show normal course, calibre, and opacification in the canalicular and cavernous parts. Their division into the anterior cerebral artery and middle cerebral artery is defined. A1, A2, and M1, M2 segments are normal on both sides. Bilateral vertebral arteries are seen to unite to form the basilar artery in a normal fashion. The basilar artery shows normal course, caliber, and opacification. Its division into the posterior cerebral arteries is defined. Bilateral P1 and P2 segments are normal. Visualized venous structures show normal opacification. No evidence of intracranial aneurysm or AV malformation is seen. IMPRESSION: No evidence of stenosis or aneurysm. No evidence of dissection. Electronically signed by Jose De Jesus Rodríguez 08-22-2025 01:33 AM Neck CTA 08/21/25 23:53 EXAM: CT angio neck with con CLINICAL HISTORY: Dizziness, headache, fall, unequal pupils TECHNIQUE: Contrast-enhanced thin-slice CT angiography scan of the carotid vessels was performed with intravenous contrast. Angiographic images were processed; 3D MIP images were acquired for interpretation. Contiguous axial images were obtained. Reformatted coronal and sagittal images were also reviewed. If IV contrast material had not been administered, the likelihood of detecting abnormalities relevant to the patient's condition would have been substantially decreased. The CT scan was performed according to ALARA (as low as reasonably achievable). COMPARISON: None. FINDINGS: Atherosclerotic calcifications are noted involving the bilateral carotid bulbs without significant stenosis. Aberrant origin of right subclavian artery. The included great vessels of the aortic arch are grossly unremarkable. The common carotid artery, carotid bulb, internal carotid artery, and origin of the external carotid artery are well opacified. The vertebral arteries are well opacified. The jugular veins are well opacified. The included lung apices are grossly unremarkable. The thyroid gland appears unremarkable. IMPRESSION: No evidence of stenosis or aneurysm. No evidence of dissection. Atherosclerotic calcifications are noted involving the bilateral carotid bulbs without significant stenosis. Electronically signed by Jose De Jesus Rodríguez 08-22-2025 01:[address] 08/21/25 23:53 EXAM: CT thoracic spine w con CLINICAL HISTORY: Fall, thoracic back pain TECHNIQUE: Multiple contiguous axial images were obtained through the thoracic spine with IV contrast. Sagittal and coronal reformatted images were obtained from the axial data. The CT scan was performed according to ALARA (as low as reasonably achievable). COMPARISON: None. FINDINGS: The alignment of the thoracic spine is maintained. A small sclerotic focus is noted involving the T6 vertebra- likely benign (bone island). Degenerative changes involving the thoracic spine are present in the form of multilevel marginal osteophytes, disc space reduction, and facet arthrosis. The thoracic vertebral bodies are maintained in height and alignment. No vertebral destructive changes are seen. C7-T1: No disc bulge. No canal stenosis. No neuroforaminal narrowing. T1-T2: No disc bulge. No canal stenosis. No neuroforaminal narrowing. T2-T3: No disc bulge. No canal stenosis. No neuroforaminal narrowing. T3-T4: No disc bulge. No canal stenosis. No neuroforaminal narrowing. T4-T5: No disc bulge. No canal stenosis. No neuroforaminal narrowing. T5-T6: No disc bulge. No canal stenosis. No neuroforaminal narrowing. T6-T7: No disc bulge. No canal stenosis. No neuroforaminal narrowing. T7-T8: No disc bulge. No canal stenosis. No neuroforaminal narrowing. T8-T9: No disc bulge. No canal stenosis. No neuroforaminal narrowing. T9-T10: Posterior disc osteophyte complex without canal stenosis. No neuroforaminal narrowing. T10-T11: No disc bulge. No canal stenosis. No neuroforaminal narrowing. T11-T12: No disc bulge. No canal stenosis. No neuroforaminal narrowing. The paravertebral soft tissues are unremarkable. The visualized lung parenchyma appears unremarkable. IMPRESSION: Thoracic spondylosis. No fracture or dislocation. Electronically signed by Jose De Jesus Rodríguez 08-22-2025 02:04 AM Tibia/Fibula X-Ray 08/21/25 23:53 EXAM: XR tibia fibula RT 2V CLINICAL HISTORY: Trauma. TECHNIQUE: X-ray of the right tibia and fibula, 2 views: anteroposterior (AP) and lateral projections. COMPARISON: None. FINDINGS: Bone: The visualized tibia and fibula are intact. No evidence of fracture or dislocation. No focal bone lesions are identified. Moderate osteoarthritic changes are seen in the right knee joint, as evidenced by narrowing of the medial tibiofemoral compartment, marginal osteophytes, and minimal spiking of the tibial spine. A small plantar calcaneal spur is noted. An enthesophyte is seen at the insertion of the Achilles tendon. Soft Tissue: Soft tissue prominence and irregularity in the anterior proximal leg, suggestive of soft tissue swelling or contusion. No soft tissue gas or radiopaque foreign body is present. IMPRESSION: 1. No evidence of acute tibial or fibular fracture or dislocation. 2. Moderate osteoarthritic changes in the right knee. 3. Soft tissue swelling and irregularity along the anterior proximal right leg, compatible with soft tissue injury. 4. Clinical correlation is suggested Disclaimer: A subtle bone abnormality or fracture may not be readily apparent on X-rays, thus clinical correlation and further imaging including follow-up CT, MRI, or follow-up X-rays are advised as needed. Electronically signed by Alphonse Thornton 08-22-2025 01:39 AM Chest CTA 08/21/25 23:54 EXAM: CT angio chest PE protocol CLINICAL HISTORY: Dizziness, SOB, fall, eval PE TECHNIQUE: Contiguous axial images were obtained from the neck base through the upper abdomen following intravenous administration of iodinated contrast material. Angiographic images were processed, and 3D MIP images were acquired for interpretation. If IV contrast material had not been administered, the likelihood of detecting abnormalities relevant to the patient's condition would have been substantially decreased. Coronal and sagittal 3-D MIPs were likewise performed and indicated to increase the sensitivity of detecting diffuse clinically relevant pathology. CT scan was performed according to ALARA (as low as reasonably achievable). 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 Ill-defined ground-glass haze is noted involving both upper lobes. Adequate contrast bolus without evidence of pulmonary embolism. The central airways are patent. No pleural effusion. Mild cardiomegaly. There are no appreciable coronary artery or aortic atherosclerotic calcifications. No pericardial effusion is identified. The thyroid is unremarkable. No mediastinal, hilar, or axillary lymphadenopathy is noted. A sclerotic lesion in T7 vertebra, likely a bony island. Aberrant right subclavian artery seen. IMPRESSION: A calcified granuloma is noted in the right upper lobe?stable. Ill-defined ground-glass opacification involving both upper lobes, which could be sequelae of prior infection?reduced as compared to prior study. No obvious pulmonary embolism. Electronically signed by Jose De Jesus Rodríguez 08-22-2025 01:54 AM Discharge Plan Visit Data Chief Complaint: Laceration/Cut (Suture/Dermabond) Stated Complaint: SEVERE LAC RT RILEY, SIDE RILEY, FALL ED Provider: Dennys King ED Midlevel Provider: Cathie Garcia Discharge Problem: Hyponatremia, Dizziness, Hypomagnesemia, Fall, Acute alteration in mental status, Laceration of right lower leg Patient Disposition: Admitted As Inpatient Condition: Fair Discharge Instructions Interventions: ED Discharge Assessment Last Done: 08/22/25 05:58 Discharge Problem: Fall Qualifiers: Encounter type: initial encounter Qualified Code(s): W19.XXXA - Unspecified fall, initial encounter Laceration of right lower leg Qualifiers: Encounter type: initial encounter Qualified Code(s): S81.811A - Laceration without foreign body, right lower leg, initial encounter
[2025-08-22] MEDS: OPTIRAY 320 125ml IV ONE (00:03)
[2025-08-22] MEDS: SODIUM CHLORIDE 0.9% 500 ML IV ONE (00:10)
[2025-08-22] MEDS: ACETAMINOPHEN 1,000 MG/100 ML VIAL IV STA (00:10)
[2025-08-22 00:19] LABS: Hematocrit (blood only) 33.1 % (37.0-47.0); Hemoglobin 11.6 g/dl (12.0-16.0); Immature Granulocytes # (auto) 0.03 K/uL (0.01-0.20); Immature Granulocytes % (auto) 0.4 %; Mean Corpuscular Hemoglobin 28.4 pg (25.0-34.0); Mean Corpuscular Volume 81.1 fL (80.0-100.0); Platelet Count 153 K/uL (130-400); RDW Standard Deviation 44.2 fL (36.4-46.3); Red Blood Count 4.08 M/uL (4.20-5.40); White Blood Count 7.45 K/ul (4.8-10.8)
[2025-08-22 00:52] LABS: INR 1.1 (0.9-1.1); Partial Thromboplastin Time 25 Seconds (21-31); Prothrombin Time 11.2 Seconds (9.0-12.0)
[2025-08-22 00:53] LABS: Alanine Aminotransferase 40 U/L (7-52); Albumin Globulin Ratio 1.7 (0.9-2); Albumin Level 3.8 gm/dl (3.4-5.0); Alkaline Phosphatase 76 U/L (34-104); Anion Gap 9 (3-11); Bilirubin,Total 0.2 mg/dl (0.2-1.0); Blood Urea Nitrogen 7 mg/dl (6-23); Calcium 8.2 mg/dl (8.6-10.3); Carbon Dioxide 28 mmol/L (21-32); Chloride 82 mmol/L (98-107); Globulin 2.3 gm/dl (2.5-4.0); Glucose 127 mg/dl (70-99(Fasting)); Magnesium 1.5 mg/dl (1.7-2.4); Potassium 3.5 mmol/L (3.5-5.1); Sodium 119 mmol/L (136-145); Total Protein 6.1 gm/dl (6.0-8.3)
--- NOTE | 2025-08-22 01:15 | CT Scan Report ---
EXAM: CT head/brain wo con CLINICAL HISTORY: Dizziness, headache, fall, unequal pupils TECHNIQUE: Multiple axial images were obtained from the skull base to the vertex without contrast. CT scan was performed according to ALARA (as low as reasonably achievable). COMPARISON: None. FINDINGS: The brain demonstrates normal morphology, attenuation, and volume for age. No evidence of a space-occupying lesion, hemorrhage, edema, mass effect, midline shift, extra-axial collection, or hydrocephalus is noted. The ventricles, sulci, and basal cisterns are symmetric and normal in size and configuration. The hillman-white matter differentiation is preserved. The visualized paranasal sinuses and mastoid air cells are well aerated. The orbital contents are within normal limits. The bony structures are intact. IMPRESSION: 1. No evidence of acute intracranial abnormality is demonstrated. Electronically signed by Jose De Jesus Rodríguez 08-22-2025 01:15 AM
--- NOTE | 2025-08-22 01:33 | CT Scan Report ---
EXAM: CT angio head w con CLINICAL HISTORY: Dizziness, headache, fall, unequal pupils TECHNIQUE: Contrast-enhanced thin-slice CT angiography scan of the cerebral vessels was performed with intravenous contrast. Angiographic images were processed, and 3D MIP images were acquired for interpretation. Contiguous axial images were obtained. Reformatted coronal and sagittal images were also reviewed. If IV contrast material had not been administered, the likelihood of detecting abnormalities relevant to the patient's condition would have been substantially decreased. The CT scan was performed according to ALARA (as low as reasonably achievable). COMPARISON: None. FINDINGS: Bilateral internal carotid arteries show normal course, calibre, and opacification in the canalicular and cavernous parts. Their division into the anterior cerebral artery and middle cerebral artery is defined. A1, A2, and M1, M2 segments are normal on both sides. Bilateral vertebral arteries are seen to unite to form the basilar artery in a normal fashion. The basilar artery shows normal course, caliber, and opacification. Its division into the posterior cerebral arteries is defined. Bilateral P1 and P2 segments are normal. Visualized venous structures show normal opacification. No evidence of intracranial aneurysm or AV malformation is seen. IMPRESSION: No evidence of stenosis or aneurysm. No evidence of dissection. Electronically signed by Jose De Jesus Rodríguez 08-22-2025 01:33 AM
--- NOTE | 2025-08-22 01:39 | CT Scan Report ---
EXAM: CT cervical spine wo con CLINICAL HISTORY: Dizziness, headache, fall, unequal pupils TECHNIQUE: Computed tomography of the cervical spine was performed without intravenous contrast. Contiguous axial images were obtained from the skull base to T2, with sagittal and coronal reformatted images reconstructed from the axial data. The CT scan was performed according to ALARA (as low as reasonably achievable). COMPARISON: None. FINDINGS: There is loss of cervical lordosis, suggesting the possibility of muscle spasm or positional change. Degenerative changes involving the cervical spine are present in the form of multilevel marginal osteophytes, disc space reduction, and facetal arthrosis. The cervical vertebral bodies are normal in height and alignment, with no evidence of fracture or subluxation. The lateral masses of C1 are symmetrical, and the dens is intact. Prevertebral soft tissues are not widened. The remaining suprahyoid and infrahyoid soft tissues in the neck are unremarkable. Posterior uncovertebral arthrosis is noted at the C4-C5 and C5-C6 levels, which is indenting the ventral thecal sac and causing bilateral neuroforaminal narrowing. The thyroid gland appears unremarkable. IMPRESSION: 1. No acute fracture or subluxation in the cervical spine. 2. Cervical spondylosis. Electronically signed by Jose De Jesus Rodríguez 08-22-2025 01:39 AM
--- NOTE | 2025-08-22 01:40 | XRay Report ---
EXAM: XR tibia fibula RT 2V CLINICAL HISTORY: Trauma. TECHNIQUE: X-ray of the right tibia and fibula, 2 views: anteroposterior (AP) and lateral projections. COMPARISON: None. FINDINGS: Bone: The visualized tibia and fibula are intact. No evidence of fracture or dislocation. No focal bone lesions are identified. Moderate osteoarthritic changes are seen in the right knee joint, as evidenced by narrowing of the medial tibiofemoral compartment, marginal osteophytes, and minimal spiking of the tibial spine. A small plantar calcaneal spur is noted. An enthesophyte is seen at the insertion of the Achilles tendon. Soft Tissue: Soft tissue prominence and irregularity in the anterior proximal leg, suggestive of soft tissue swelling or contusion. No soft tissue gas or radiopaque foreign body is present. IMPRESSION: 1. No evidence of acute tibial or fibular fracture or dislocation. 2. Moderate osteoarthritic changes in the right knee. 3. Soft tissue swelling and irregularity along the anterior proximal right leg, compatible with soft tissue injury. 4. Clinical correlation is suggested Disclaimer: A subtle bone abnormality or fracture may not be readily apparent on X-rays, thus clinical correlation and further imaging including follow-up CT, MRI, or follow-up X-rays are advised as needed. Electronically signed by Alphonse Thornton 08-22-2025 01:39 AM
--- NOTE | 2025-08-22 01:42 | CT Scan Report ---
EXAM: CT angio neck with con CLINICAL HISTORY: Dizziness, headache, fall, unequal pupils TECHNIQUE: Contrast-enhanced thin-slice CT angiography scan of the carotid vessels was performed with intravenous contrast. Angiographic images were processed; 3D MIP images were acquired for interpretation. Contiguous axial images were obtained. Reformatted coronal and sagittal images were also reviewed. If IV contrast material had not been administered, the likelihood of detecting abnormalities relevant to the patient's condition would have been substantially decreased. The CT scan was performed according to ALARA (as low as reasonably achievable). COMPARISON: None. FINDINGS: Atherosclerotic calcifications are noted involving the bilateral carotid bulbs without significant stenosis. Aberrant origin of right subclavian artery. The included great vessels of the aortic arch are grossly unremarkable. The common carotid artery, carotid bulb, internal carotid artery, and origin of the external carotid artery are well opacified. The vertebral arteries are well opacified. The jugular veins are well opacified. The included lung apices are grossly unremarkable. The thyroid gland appears unremarkable. IMPRESSION: No evidence of stenosis or aneurysm. No evidence of dissection. Atherosclerotic calcifications are noted involving the bilateral carotid bulbs without significant stenosis. Electronically signed by Jose De Jesus Rodríguez 08-22-2025 01:41 AM
--- NOTE | 2025-08-22 01:54 | CT Scan Report ---
EXAM: CT angio chest PE protocol CLINICAL HISTORY: Dizziness, SOB, fall, eval PE TECHNIQUE: Contiguous axial images were obtained from the neck base through the upper abdomen following intravenous administration of iodinated contrast material. Angiographic images were processed, and 3D MIP images were acquired for interpretation. If IV contrast material had not been administered, the likelihood of detecting abnormalities relevant to the patient's condition would have been substantially decreased. Coronal and sagittal 3-D MIPs were likewise performed and indicated to increase the sensitivity of detecting diffuse clinically relevant pathology. CT scan was performed according to ALARA (as low as reasonably achievable). COMPARISON: jul 19:09:00 [employer] FINDINGS: A calcified granuloma is noted in the right upper lobe. Ill-defined ground-glass haze is noted involving both upper lobes. Adequate contrast bolus without evidence of pulmonary embolism. The central airways are patent. No pleural effusion. Mild cardiomegaly. There are no appreciable coronary artery or aortic atherosclerotic calcifications. No pericardial effusion is identified. The thyroid is unremarkable. No mediastinal, hilar, or axillary lymphadenopathy is noted. A sclerotic lesion in T7 vertebra, likely a bony island. Aberrant right subclavian artery seen. IMPRESSION: A calcified granuloma is noted in the right upper lobe?stable. Ill-defined ground-glass opacification involving both upper lobes, which could be sequelae of prior infection?reduced as compared to prior study. No obvious pulmonary embolism. Electronically signed by Jose De Jesus Rodrígeuz 08-22-2025 01:54 AM
--- NOTE | 2025-08-22 02:04 | CT Scan Report ---
EXAM: CT thoracic spine w con CLINICAL HISTORY: Fall, thoracic back pain TECHNIQUE: Multiple contiguous axial images were obtained through the thoracic spine with IV contrast. Sagittal and coronal reformatted images were obtained from the axial data. The CT scan was performed according to ALARA (as low as reasonably achievable). COMPARISON: None. FINDINGS: The alignment of the thoracic spine is maintained. A small sclerotic focus is noted involving the T6 vertebra- likely benign (bone island). Degenerative changes involving the thoracic spine are present in the form of multilevel marginal osteophytes, disc space reduction, and facet arthrosis. The thoracic vertebral bodies are maintained in height and alignment. No vertebral destructive changes are seen. C7-T1: No disc bulge. No canal stenosis. No neuroforaminal narrowing. T1-T2: No disc bulge. No canal stenosis. No neuroforaminal narrowing. T2-T3: No disc bulge. No canal stenosis. No neuroforaminal narrowing. T3-T4: No disc bulge. No canal stenosis. No neuroforaminal narrowing. T4-T5: No disc bulge. No canal stenosis. No neuroforaminal narrowing. T5-T6: No disc bulge. No canal stenosis. No neuroforaminal narrowing. T6-T7: No disc bulge. No canal stenosis. No neuroforaminal narrowing. T7-T8: No disc bulge. No canal stenosis. No neuroforaminal narrowing. T8-T9: No disc bulge. No canal stenosis. No neuroforaminal narrowing. T9-T10: Posterior disc osteophyte complex without canal stenosis. No neuroforaminal narrowing. T10-T11: No disc bulge. No canal stenosis. No neuroforaminal narrowing. T11-T12: No disc bulge. No canal stenosis. No neuroforaminal narrowing. The paravertebral soft tissues are unremarkable. The visualized lung parenchyma appears unremarkable. IMPRESSION: Thoracic spondylosis. No fracture or dislocation. Electronically signed by Jose De Jesus Rodríguez 08-22-2025 02:04 AM
[2025-08-22] MEDS: LIDOCAINE 1%/EPINEPHRINE 1:100,000 50 ML VIAL INFIL ONE (02:10)
[2025-08-22] MEDS: MAGNESIUM SULFATE / D5W 1 GM/100 ML BAG IV STA (02:22)
[2025-08-22] MEDS: ALBUT/IPRATROP 3MG/0.5MG NEB 3 ML VIAL NEB STA (02:22)
[2025-08-22 04:05] LABS: Appearance Urine Clear (Clear); Bacteria Urine Automated None Seen (None Seen); Cast Urine Automated 0-2 /lpf (0-2); Epithelial Cell Urine Auto 0-2 /hpf (0-2); Glucose Urine UA Negative (Negative); RBC Urine Automated 0-2 /hpf (0-2); WBC Urine Automated 0-5 /hpf (0-5)
[2025-08-22] MEDS ORDERED: STAT IV/IM STA ×2 (04:07→06:44)
--- NOTE | 2025-08-22 04:09 | History & Physical Report ---
Date of Service August 22, 2025 Assessment & Plan (1) Hyponatremia: (2) Pneumonia: (3) Asthma exacerbation in COPD: (4) CVID (common variable immunodeficiency): Plan The patient is a 45-year-old female with a past medical history including allergic asthma, thrush, pain due to IUD, chronic constipation, endometrial mass, iron deficiency anemia, history of DVT, DARWIN, multiple pulmonary nodules, GERD, hypothyroidism, diabetes mellitus type 2, basal cell carcinoma, schizo active schizophrenia, bipolar disorder, PTSD, migraine, COPD, and CVID receiving periodic IVIG.The patient presents to the emergency department with 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 The patient herself is lethargic, will periodically open her eyes and attempt to say some words, but then falls immediately back to sleep. She reportedly fell in the kitchen, and had multiple lacerations hide right calf, repaired by the ED. The patient was evidently walking in the kitchen, had one of her dizzy spells, tripped and fell over unknown object. Per the patient and significant other, she has chronic nausea and is on scheduled Zofran, but is no vomiting. Workup in the emergency department included the following imaging studies: CT scan of head was normal, CTA head and neck was normal, CT scan thoracic spine was normal, CT C scan of cervical spine was normal. Tib-fib x-ray showed moderate right knee osteoarthritis, and soft tissue swelling anterior proximal right leg. Significant abnormal laboratories: Magnesium 1.5, AST 90, sodium 119, serum osmolality 249, urine osmolality 97. The patient will be admitted to the progressive care unit. Hyponatremia- Sodium upon admission was 119, with most recent sodium on 08/06/2025 was 137. Serum osmolality was 249 Urine osmolality 97. Discussion with her significant other indicated that the patient had been drinking large volumes of fluid, for unknown reasons. Her laboratories are suggestive of polydipsia. Hypertonic saline 3%, 100 mL IV x 1 Sodium chloride 1 g p.o. twice daily when patient is alert enough to take p.o. BMP every 4 hours Further treatment based on next BMP. Sodium improved from 119-122 after first dose of hypertonic saline, given at 4:07 AM. Will give a second dose of hypertonic saline 100 mL, at 6:45 AM, and repeat laboratories as noted. Patient will be fluid restricted in that she would not be getting IV fluids at this point for a few hours, although she did give 1 L normal saline from the ED prior to receiving the hypertonic saline Patient can probably be placed on IV fluids based on the BMP repeat in 4 hours. When she is more alert, she can be resumed gradually on her usual outpatient medications Bilateral upper lobe pneumonia/asthma exacerbation and COPD- Placed on Solu-Medrol 125 mg IV now, then 40 mg IV every 8 hours Azithromycin 500 mg IV every 24 hours Cefepime 2 g IV every 12 hours Zofran 4 mg IV every 6 hours as needed Acetaminophen 1 g IV every 8 hours as needed for mild pain or fever Duonebs every 4 hours while awake and every 2 hours when necessary. Magnesium sulfate [address] scan chest notes primarily upper lobe infiltrates Hypomagnesemia- Magnesium 1.5 on admission Did receive 1 g IV from the ED. Will receive an additional gram for total 2, recheck laboratories serially CAD/hypertension- Patient is relatively hypotensive at this point. Will be holding all antihypertensive, including diltiazem, metoprolol, bumetanide, CVID- Patient receives Hizentra/IVIG at the direction of allergy outpatient office Mental health- Until patient is more alert, will be holding quetiapine, hydroxyzine, bupropion, Severe DARWIN- Patient wears CPAP at bedtime, dosing can be determined for this evening, after reviewing previous admission Disposition-her significant other will be allowed to stay with the patient and hospital, otherwise, patient has been noted to become very irritable and agitated and will try to leave AMA after pulling her IVs out. 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 The patient herself is lethargic, will periodically open her eyes and attempt to say some words, but then falls immediately back to sleep. She reportedly fell in the kitchen, and had multiple lacerations hide right calf, repaired by the ED. The patient was evidently walking in the kitchen, had one of her dizzy spells, tripped and fell over unknown object. Per the patient and significant other, she has chronic nausea and is on scheduled Zofran, but is no vomiting. 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 The patient herself is lethargic, will periodically open her eyes and attempt to say some words, but then falls immediately back to sleep. She reportedly fell in the kitchen, and had multiple lacerations hide right calf, repaired by the ED. The patient was evidently walking in the kitchen, had one of her dizzy spells, tripped and fell over unknown object. Per the patient and significant other, she has chronic nausea and is on scheduled Zofran, but is no vomiting. Workup in the emergency department included the following imaging studies: CT scan of head was normal, CTA head and neck was normal, CT scan thoracic spine was normal, CT C scan of cervical spine was normal. Tib-fib x-ray showed moderate right knee osteoarthritis, and soft tissue swelling anterior proximal right leg. Significant abnormal laboratories: Magnesium 1.5, AST 90, sodium 119, serum osmolality 249, urine osmolality 97. Allergies Allergy/AdvReac Type Severity Reaction Status Date / Time clindamycin Allergy Mild Rash Verified 08/17/25 11:37 sulfamethoxazole Allergy Mild Rash Verified 08/17/25 11:37 [From Bactrim] trimethoprim [From Bactrim] Allergy Mild Rash Verified 08/17/25 11:37 vancomycin AdvReac Severe "shuts Verified 08/17/25 11:37 down my kidneys" promethazine [From Phenergan] AdvReac Intermediate muscle Verified 08/17/25 11:37 spams varenicline [From Chantix] AdvReac Intermediate "caused Verified 08/17/25 11:37 mental health issues" Home Medications Medication Instructions Recorded Confirmed Type epinephrine 0.3 mg/0.3 mL 0.3 mg IM DIRECTED PRN Allergic 02/10/21 08/22/25 History injection, auto-injector Reaction fluticasone propionate 50 2 spray intranasal QAM 02/10/21 08/22/25 History mcg/actuation nasal spray,suspension immune glob G 1 gram/5 mL(20 70 ml subcut WK 02/10/21 08/22/25 History %)-prol-IgA 0-50 mcg/mL subcutaneous soln (Hizentra) bupropion HCl 150 mg 24 hr tablet, 150 mg PO BID 02/14/21 08/22/25 History extended release (Wellbutrin XL) loratadine 10 mg tablet (Claritin) 10 mg PO QAM 02/14/21 08/22/25 History potassium chloride 20 mEq oral 20 meq PO DAILY 02/14/21 08/22/25 History packet diclofenac sodium 1 % topical gel 2 g topical QID PRN Pain 07/14/24 08/22/25 History diltiazem HCl 300 mg 300 mg PO QAM #90 caps 11/10/24 08/22/25 Rx capsule,extended release 24 hr (Cardizem CD) budesonide 160 mcg-glycopyr 9 2 inh inhalation BID #10.7 grams 01/04/25 08/22/25 Rx mcg-formot 4.8 mcg/actuation HFA inhaler (BrezHelidynei OraMetrixphere) inhalational spacing device (Space #1 ea 01/04/25 08/22/25 Rx Chamber) naloxone 4 mg/actuation nasal 4 mg intranasal Q2M PRN opioid 01/04/25 08/22/25 Rx spray (Narcan) overdose #2 ea ondansetron HCl 8 mg tablet 8 mg PO Q8H PRN Nausea #30 tabs 02/09/25 08/22/25 Rx montelukast 10 mg tablet 10 mg PO QPM #90 tabs 03/15/25 08/22/25 Rx (Singulair) ipratropium bromide 42 mcg (0.06 2 spray intranasal QID PRN 04/15/25 08/22/25 Rx %) nasal spray Congestion #15 mL gabapentin 600 mg tablet 600 mg PO QID 06/23/25 08/22/25 History metoprolol tartrate 50 mg tablet 50 mg PO BID #180 tabs 06/23/25 08/22/25 Rx levonorgestrel 21 mcg/24 hr (up to 21 mcg intrauterine CONTINOUS 07/01/25 08/22/25 History 8 years) 52 mg intrauterine device (Mirena) pantoprazole 40 mg tablet,delayed 40 mg PO BID #180 tabs 07/16/25 08/22/25 Rx release (Protonix) levothyroxine 137 mcg capsule 137 mcg PO QAM #90 caps 07/20/25 08/22/25 Rx oxycodone-acetaminophen 7.5 mg-325 1 tab PO QID PRN pain #90 tabs 07/26/25 08/22/25 Rx mg tablet (Percocet) nebulizers #1 ea 08/02/25 08/22/25 Rx atorvastatin 20 mg tablet 20 mg PO HS 08/04/25 08/22/25 History benzonatate 100 mg capsule 100 mg PO BID PRN Cough 08/04/25 08/22/25 History docusate sodium 100 mg capsule 100 mg PO QDD 08/04/25 08/22/25 History hydroxyzine pamoate 100 mg capsule 100 mg PO TID PRN Itching 08/04/25 08/22/25 History mupirocin 2 % topical ointment 1 applic topical TID PRN Rash 08/04/25 08/22/25 History nystatin 100,000 unit/gram topical 1 applic topical QID PRN Rash 08/04/25 08/22/25 History ointment quetiapine 25 mg tablet 25 mg PO BID PRN Anxiety 08/04/25 08/22/25 History quetiapine 100 mg tablet 100 mg PO QAM 08/09/25 08/22/25 History quetiapine 300 mg tablet 300 mg PO HS 08/09/25 08/22/25 History albuterol 90 mcg-budesonide 80 2 inh inhalation QID PRN shortness 08/10/25 08/22/25 Rx mcg/actuation HFA aerosol inhaler of breath #5.9 grams (Airsupra) bumetanide 1 mg tablet See Rx Instructions PO QAM #135 08/10/25 08/22/25 Rx tabs tirzepatide 5 mg/0.5 mL 5 mg (0.5 mL) subcut .ONCE WEEKLY 08/10/25 08/22/25 Rx subcutaneous pen injector #6 mL ipratropium 0.5 mg-albuterol 3 mg 3 ml inhalation QID PRN Shortness 08/16/25 08/22/25 Rx (2.5 mg base)/3 mL nebulization Of Breath #360 mL soln Past Med/Surg History Problem List (Updated 08/22/25 @ 06:38 by John Huggins MD) Asthma exacerbation in COPD Pneumonia Hyponatremia Asthma (Acute) Dyspnea on exertion Abnormal CT scan, chest Oral thrush Allergic asthma Pain due to intrauterine contraceptive device (IUD) Chronic constipation Endometrial mass Vaginal bleeding (Acute) Anemia (Acute) Menorrhagia Iron deficiency anemia Lumbar radiculopathy Severe persistent asthma Dysphagia History of DVT (deep vein thrombosis) DARWIN (obstructive sleep apnea) Multiple pulmonary nodules determined by computed tomography of lung Adverse effect of prednisone CVID (common variable immunodeficiency) Benign essential hypertension Atherogenic dyslipidemia Morbid obesity with BMI of 40.0-44.9, adult Chronic back pain GERD (gastroesophageal reflux disease) Hypothyroidism Diabetes mellitus, type 2 Basal cell carcinoma above left eye Schizo affective schizophrenia Bipolar disorder Post traumatic stress disorder Migraine On home oxygen therapy 4L via CPAP at hs only Chronic obstructive pulmonary disease Asthma inhaler daily/prn, nebulizer prn Medical History Acute exacerbation of CHF (congestive heart failure) Hypokalemia Acute exacerbation of CHF (congestive heart failure) Pneumonitis Asthma exacerbation CAD (coronary artery disease) Vaginal bleeding Menorrhagia History of blood transfusion (04/2025) Hx of basal cell carcinoma Atherogenic dyslipidemia Benign essential hypertension CVID (common variable immunodeficiency) History of MRSA infection of lungs (2006) Iron deficiency anemia History of dyspnea Hx of deep venous thrombosis (~2021) Dysphagia CHF (congestive heart failure) History of COVID-19 Anxiety disorder Schizo affective schizophrenia PTSD (post-traumatic stress disorder) DARWIN (obstructive sleep apnea) On home oxygen therapy Multiple pulmonary nodules determined by computed tomography of lung Hx of migraines Hx of esophagitis Hypothyroidism GERD (gastroesophageal reflux disease) Diabetes mellitus, type 2 COPD (chronic obstructive pulmonary disease) Chronic back pain Bipolar disorder Asthma History of anemia History of thyroid cancer Hyperlipidemia History of pneumonia (~2016) Surgical History Hx of hernia repair (2021) History of lung surgery (2006) History of foot surgery History of lumbar surgery (~07/19/04) History of colonoscopy History of esophagogastroduodenoscopy (EGD) History of cholecystectomy (~2015) History of basal cell carcinoma (BCC) excision History of tooth extraction S/P thyroid biopsy History of thyroidectomy, total (~2017) History of cardiac cath (~2018) Family History Mother Family history of diabetes mellitus Grandfather (Maternal) Family hx of colon cancer Grandfather (Maternal) Colorectal cancer Other No family history of adverse response to anesthesia Denies family history of Ovarian cancer Prostate cancer Myocardial infarction Breast cancer Social History Smoking Status: Never smoker Tobacco Type: Cigarettes Age Started Using Tobacco: 17; Age Quit Using Tobacco: 42; packs per day: 1; Second Hand Exposure: No; Do You Dip or Chew Tobacco: No; Hx Alcohol Use: Yes Alcohol type: beer Hx Substance Use: No Preferred Language: Latvian Communication Ability: Effective Visual Impairment: No Limitations Hearing Ability: Normal Leather Cartridge Belt Maker Required: No Beliefs That Will Affect Care: None marital status: Life Partner Current Living Situation: Significant Other Current Living Situation Comment: partner current occupational status: disabled Feels Safe at Home: Yes Childhood Exposure to Second-Hand Smoke: Yes Dental Care, Regularly: No Physical Activity Frequency: Daily Seatbelt Use: sometimes Sunscreen Use: No Assistive Devices: CPAP, Nebulizer and Oxygen - at Night Review of Systems Review of Systems: Patient was not able to contribute significantly to review of systems or HPI during my interview. Her significant other supplied most information. The patient was evidently more earlier in the ED stay, and was able to contribute some information per ED notes. Physical Exam Physical Exam: The patient is lethargic and sleeping, occasionally waking her name being called. Well developed and well nourished, normocephalic and atraumatic, lying in bed and in no acute distress. HEENT--PERRL, EOMI, mucous membranes and oropharynx Neck--supple. No JVD. No bruits. Thyroid normal, trachea midline, no adenopathy. Heart--normal S1 and S2. No murmurs, rubs or gallops. Lungs--clear bilaterally, no respiratory distress, no accessory muscle use. Abdomen--normal bowel sounds and soft. Nontender. Nondistended. Obese Extremities--no cyanosis or clubbing. No edema. There are good distal pulses b/l. Dermatologic--normal skin turgor, normal color, no abnormal lymph nodes, no rash. Neurologic--cranial nerves II through XII grossly intact. Rheumatologic--normal range of motion. Psychiatric--lethargic and sleeping for the most part. Results & Data Results & Data Vital Signs (Past 12 Hours) Vital Signs Temp Pulse Pulse Resp BP BP Pulse Ox 08/22/25 03:44 78 14 120/84 96 08/22/25 03:31 78 08/22/25 02:36 80 22 92 08/22/25 02:30 123/90 08/22/25 02:27 82 14 08/22/25 02:21 82 20 08/22/25 02:12 83 17 08/22/25 02:00 131/88 08/22/25 02:00 131/88 08/22/25 02:00 82 15 08/22/25 01:51 82 15 08/22/25 01:42 81 25 H 08/22/25 01:33 80 22 94 08/22/25 01:30 120/87 08/22/25 01:30 120/87 08/22/25 01:15 82 16 08/22/25 00:33 81 7 L 94 08/22/25 00:30 122/76 08/22/25 00:12 82 20 96 08/22/25 00:00 112/73 08/22/25 00:00 112/73 08/22/25 00:00 80 15 94 08/21/25 23:57 15 08/21/25 23:53 83 16 94 08/21/25 23:30 162/126 H 08/21/25 23:30 162/126 H 08/21/25 23:30 83 19 92 08/21/25 23:21 82 20 93 08/21/25 23:17 83 08/21/25 23:05 36.4 C L 84 18 127/79 97 O2 Del Method 08/22/25 03:44 Room Air 08/22/25 03:31 08/22/25 02:36 08/22/25 02:30 08/22/25 02:27 08/22/25 02:21 08/22/25 02:12 08/22/25 02:00 08/22/25 02:00 08/22/25 02:00 08/22/25 01:51 08/22/25 01:42 08/22/25 01:33 08/22/25 01:30 08/22/25 01:30 08/22/25 01:15 08/22/25 00:33 08/22/25 00:30 08/22/25 00:12 08/22/25 00:00 08/22/25 00:00 08/22/25 00:00 08/21/25 23:57 08/21/25 23:53 Room Air 08/21/25 23:30 08/21/25 23:30 08/21/25 23:30 08/21/25 23:21 08/21/25 23:17 08/21/25 23:05 Room Air Laboratory Results Laboratory Results WBC 7.45 K/ul (4.8-10.8) 08/22/25 00:01 RBC 4.08 M/uL (4.20-5.40) L 08/22/25 00:01 Hgb 11.6 g/dl (12.0-16.0) L 08/22/25 00:01 POC Hgb 12.2 g/dl (12.0-16.0) 08/22/25 00:03 Hct 33.1 % (37.0-47.0) L 08/22/25 00:01 POC Hct 36 % (37-47) L 08/22/25 00:03 MCV 81.1 fL (80.0-100.0) 08/22/25 00:01 MCH 28.4 pg (25.0-34.0) 08/22/25 00:01 MCHC 35.0 g/dL (32.0-36.0) 08/22/25 00:01 RDW Std Deviation 44.2 fL (36.4-46.3) 08/22/25 00:01 RDW Coeff of Shen 15.0 % (11.5-14.5) H 08/22/25 00:01 Plt Count 153 K/uL (130-400) 08/22/25 00:01 MPV 9.4 fL (9.4-12.4) 08/22/25 00:01 Immature Gran % (Auto) 0.4 % 08/22/25 00:01 Neut % (Auto) 69.2 % 08/22/25 00:01 Lymph % (Auto) 18.8 % 08/22/25 00:01 [place] % (Auto) 8.1 % 08/22/25 00:01 Eos % (Auto) 3.1 % 08/22/25 00:01 Baso % (Auto) 0.4 % 08/22/25 00:01 Neut # (Auto) 5.16 K/uL (1.40-6.50) 08/22/25 00:01 Lymph # (Auto) 1.40 K/uL (1.20-3.40) 08/22/25 00:01 [place] # (Auto) 0.60 K/uL (0.11-0.59) H 08/22/25 00:01 Eos # (Auto) 0.23 K/uL (0.00-0.50) 08/22/25 00:01 Baso # (Auto) 0.03 K/uL (0.00-0.20) 08/22/25 00:01 Immature Gran # (Auto) 0.03 K/uL (0.01-0.20) 08/22/25 00:01 PT 11.2 Seconds (9.0-12.0) 08/22/25 00:01 INR 1.1 (0.9-1.1) 08/22/25 00:01 APTT 25 Seconds (21-31) 08/22/25 00:01 PTT Ratio 0.9 08/22/25 00:01 POC Sodium 119 mmol/L (135-144) L* 08/22/25 00:03 Sodium 122 mmol/L (136-145) L 08/22/25 04:55 POC Potassium 3.4 mmol/L (3.3-5.0) 08/22/25 00:03 Potassium 3.6 mmol/L (3.5-5.1) 08/22/25 04:55 POC Chloride 80 mmol/L (101-112) L 08/22/25 00:03 Chloride 86 mmol/L (98-107) L 08/22/25 04:55 Carbon Dioxide 30 mmol/L (21-32) 08/22/25 04:55 POC Total CO2 28 mmol/L (24-31) 08/22/25 00:03 Anion Gap 6 (3-11) 08/22/25 04:55 POC Anion Gap 15.0 mmol/L (16-25) L 08/22/25 00:03 POC BUN 5 mg/dl (7-18) L 08/22/25 00:03 BUN 7 mg/dl (6-23) 08/22/25 04:55 Creatinine 0.99 mg/dl (0.6-1.2) 08/22/25 04:55 POC Creatinine 1.2 mg/dl (0.6-1.3) 08/22/25 00:03 Est Cr Clr Drug Dosing 82.5 ml/min 08/22/25 04:55 eGFR 71.66 08/22/25 04:55 BUN/Creatinine Ratio 7.1 (10-20) L 08/22/25 04:55 Glucose 83 mg/dl (70-99(Fasting)) 08/22/25 04:55 POC Glucose (other) 129 mg/dl (70-99) H 08/22/25 00:03 Osmolality 249 mOsm/kg (280-300) L 08/22/25 00:01 Calcium 7.9 mg/dl (8.6-10.3) L 08/22/25 04:55 POC Ioniz Calcium Eriberto 1.05 mmol/l (1.12-1.32) L 08/22/25 00:03 Magnesium 1.9 mg/dl (1.7-2.4) 08/22/25 04:55 Total Bilirubin 0.2 mg/dl (0.2-1.0) 08/22/25 00:01 AST 90 U/L (13-39) H 08/22/25 00:01 ALT 40 U/L (7-52) 08/22/25 00:01 Alkaline Phosphatase 76 U/L (34-104) 08/22/25 00:01 Troponin I High Sens 6.7 pg/ml (0-14) 08/22/25 00:01 Total Protein 6.1 gm/dl (6.0-8.3) 08/22/25 00:01 Albumin 3.8 gm/dl (3.4-5.0) 08/22/25 00:01 Globulin 2.3 gm/dl (2.5-4.0) L 08/22/25 00:01 Albumin/Globulin Ratio 1.7 (0.9-2) 08/22/25 00:01 Urine Color Yellow 08/22/25 03:30 Urine Appearance Clear (Clear) 08/22/25 03:30 Urine pH 5.5 (4.5-7.5) 08/22/25 03:30 Ur Specific [place] 1.010 (1.000-1.030) 08/22/25 03:30 Urine Protein Negative (Negative) 08/22/25 03:30 Urine Glucose (UA) Negative (Negative) 08/22/25 03:30 Urine Ketones Negative (Negative) 08/22/25 03:30 Urine Blood Trace (Negative) H 08/22/25 03:30 Urine Nitrite Negative (Negative) 08/22/25 03:30 Urine Bilirubin Negative (Negative) 08/22/25 03:30 Urine Urobilinogen Negative (Negative) 08/22/25 03:30 Ur Leukocyte Esterase Negative (Negative) 08/22/25 03:30 Urine WBC (Auto) 0-5 /hpf (0-5) 08/22/25 03:30 Urine RBC (Auto) 0-2 /hpf (0-2) 08/22/25 03:30 U Hyaline Cast (Auto) 0-2 /lpf (0-2) 08/22/25 03:30 U Epithel Cells (Auto) 0-2 /hpf (0-2) 08/22/25 03:30 Urine Bacteria (Auto) None Seen (None Seen) 08/22/25 03:30 Urine Osmolality 97 mOsm/kg (500-800) L 08/22/25 03:30 Urine Comment 08/22/25 03:[address] 08/21/25 23:53 EXAM: CT cervical spine wo con CLINICAL HISTORY: Dizziness, headache, fall, unequal pupils TECHNIQUE: Computed tomography of the cervical spine was performed without intravenous contrast. Contiguous axial images were obtained from the skull base to T2, with sagittal and coronal reformatted images reconstructed from the axial data. The CT scan was performed according to ALARA (as low as reasonably achievable). COMPARISON: None. FINDINGS: There is loss of cervical lordosis, suggesting the possibility of muscle spasm or positional change. Degenerative changes involving the cervical spine are present in the form of multilevel marginal osteophytes, disc space reduction, and facetal arthrosis. The cervical vertebral bodies are normal in height and alignment, with no evidence of fracture or subluxation. The lateral masses of C1 are symmetrical, and the dens is intact. Prevertebral soft tissues are not widened. The remaining suprahyoid and infrahyoid soft tissues in the neck are unremarkable. Posterior uncovertebral arthrosis is noted at the C4-C5 and C5-C6 levels, which is indenting the ventral thecal sac and causing bilateral neuroforaminal narrowing. The thyroid gland appears unremarkable. IMPRESSION: 1. No acute fracture or subluxation in the cervical spine. 2. Cervical spondylosis. Electronically signed by Jose De Jesus Rodríguez 08-22-2025 01:[address] 08/21/25 23:53 EXAM: CT head/brain wo con CLINICAL HISTORY: Dizziness, headache, fall, unequal pupils TECHNIQUE: Multiple axial images were obtained from the skull base to the vertex without contrast. CT scan was performed according to ALARA (as low as reasonably achievable). COMPARISON: None. FINDINGS: The brain demonstrates normal morphology, attenuation, and volume for age. No evidence of a space-occupying lesion, hemorrhage, edema, mass effect, midline shift, extra-axial collection, or hydrocephalus is noted. The ventricles, sulci, and basal cisterns are symmetric and normal in size and configuration. The hillman-white matter differentiation is preserved. The visualized paranasal sinuses and mastoid air cells are well aerated. The orbital contents are within normal limits. The bony structures are intact. IMPRESSION: 1. No evidence of acute intracranial abnormality is demonstrated. Electronically signed by Jose De Jesus Rodríguez 08-22-2025 01:15 AM Head CTA 08/21/25 23:53 EXAM: CT angio head w con CLINICAL HISTORY: Dizziness, headache, fall, unequal pupils TECHNIQUE: Contrast-enhanced thin-slice CT angiography scan of the cerebral vessels was performed with intravenous contrast. Angiographic images were processed, and 3D MIP images were acquired for interpretation. Contiguous axial images were obtained. Reformatted coronal and sagittal images were also reviewed. If IV contrast material had not been administered, the likelihood of detecting abnormalities relevant to the patient's condition would have been substantially decreased. The CT scan was performed according to ALARA (as low as reasonably achievable). COMPARISON: None. FINDINGS: Bilateral internal carotid arteries show normal course, calibre, and opacification in the canalicular and cavernous parts. Their division into the anterior cerebral artery and middle cerebral artery is defined. A1, A2, and M1, M2 segments are normal on both sides. Bilateral vertebral arteries are seen to unite to form the basilar artery in a normal fashion. The basilar artery shows normal course, caliber, and opacification. Its division into the posterior cerebral arteries is defined. Bilateral P1 and P2 segments are normal. Visualized venous structures show normal opacification. No evidence of intracranial aneurysm or AV malformation is seen. IMPRESSION: No evidence of stenosis or aneurysm. No evidence of dissection. Electronically signed by Jose De Jesus Rodríguez 08-22-2025 01:33 AM Neck CTA 08/21/25 23:53 EXAM: CT angio neck with con CLINICAL HISTORY: Dizziness, headache, fall, unequal pupils TECHNIQUE: Contrast-enhanced thin-slice CT angiography scan of the carotid vessels was performed with intravenous contrast. Angiographic images were processed; 3D MIP images were acquired for interpretation. Contiguous axial images were obtained. Reformatted coronal and sagittal images were also reviewed. If IV contrast material had not been administered, the likelihood of detecting abnormalities relevant to the patient's condition would have been substantially decreased. The CT scan was performed according to ALARA (as low as reasonably achievable). COMPARISON: None. FINDINGS: Atherosclerotic calcifications are noted involving the bilateral carotid bulbs without significant stenosis. Aberrant origin of right subclavian artery. The included great vessels of the aortic arch are grossly unremarkable. The common carotid artery, carotid bulb, internal carotid artery, and origin of the external carotid artery are well opacified. The vertebral arteries are well opacified. The jugular veins are well opacified. The included lung apices are grossly unremarkable. The thyroid gland appears unremarkable. IMPRESSION: No evidence of stenosis or aneurysm. No evidence of dissection. Atherosclerotic calcifications are noted involving the bilateral carotid bulbs without significant stenosis. Electronically signed by Jose De Jesus Rodríguez 08-22-2025 01:[address] 08/21/25 23:53 EXAM: CT thoracic spine w con CLINICAL HISTORY: Fall, thoracic back pain TECHNIQUE: Multiple contiguous axial images were obtained through the thoracic spine with IV contrast. Sagittal and coronal reformatted images were obtained from the axial data. The CT scan was performed according to ALARA (as low as reasonably achievable). COMPARISON: None. FINDINGS: The alignment of the thoracic spine is maintained. A small sclerotic focus is noted involving the T6 vertebra- likely benign (bone island). Degenerative changes involving the thoracic spine are present in the form of multilevel marginal osteophytes, disc space reduction, and facet arthrosis. The thoracic vertebral bodies are maintained in height and alignment. No vertebral destructive changes are seen. C7-T1: No disc bulge. No canal stenosis. No neuroforaminal narrowing. T1-T2: No disc bulge. No canal stenosis. No neuroforaminal narrowing. T2-T3: No disc bulge. No canal stenosis. No neuroforaminal narrowing. T3-T4: No disc bulge. No canal stenosis. No neuroforaminal narrowing. T4-T5: No disc bulge. No canal stenosis. No neuroforaminal narrowing. T5-T6: No disc bulge. No canal stenosis. No neuroforaminal narrowing. T6-T7: No disc bulge. No canal stenosis. No neuroforaminal narrowing. T7-T8: No disc bulge. No canal stenosis. No neuroforaminal narrowing. T8-T9: No disc bulge. No canal stenosis. No neuroforaminal narrowing. T9-T10: Posterior disc osteophyte complex without canal stenosis. No neuroforaminal narrowing. T10-T11: No disc bulge. No canal stenosis. No neuroforaminal narrowing. T11-T12: No disc bulge. No canal stenosis. No neuroforaminal narrowing. The paravertebral soft tissues are unremarkable. The visualized lung parenchyma appears unremarkable. IMPRESSION: Thoracic spondylosis. No fracture or dislocation. Electronically signed by Jose De Jesus Rodríguez 08-22-2025 02:04 AM Tibia/Fibula X-Ray 08/21/25 23:53 EXAM: XR tibia fibula RT 2V CLINICAL HISTORY: Trauma. TECHNIQUE: X-ray of the right tibia and fibula, 2 views: anteroposterior (AP) and lateral projections. COMPARISON: None. FINDINGS: Bone: The visualized tibia and fibula are intact. No evidence of fracture or dislocation. No focal bone lesions are identified. Moderate osteoarthritic changes are seen in the right knee joint, as evidenced by narrowing of the medial tibiofemoral compartment, marginal osteophytes, and minimal spiking of the tibial spine. A small plantar calcaneal spur is noted. An enthesophyte is seen at the insertion of the Achilles tendon. Soft Tissue: Soft tissue prominence and irregularity in the anterior proximal leg, suggestive of soft tissue swelling or contusion. No soft tissue gas or radiopaque foreign body is present. IMPRESSION: 1. No evidence of acute tibial or fibular fracture or dislocation. 2. Moderate osteoarthritic changes in the right knee. 3. Soft tissue swelling and irregularity along the anterior proximal right leg, compatible with soft tissue injury. 4. Clinical correlation is suggested Disclaimer: A subtle bone abnormality or fracture may not be readily apparent on X-rays, thus clinical correlation and further imaging including follow-up CT, MRI, or follow-up X-rays are advised as needed. Electronically signed by Alphonse Thornton 08-22-2025 01:39 AM Chest CTA 08/21/25 23:54 EXAM: CT angio chest PE protocol CLINICAL HISTORY: Dizziness, SOB, fall, eval PE TECHNIQUE: Contiguous axial images were obtained from the neck base through the upper abdomen following intravenous administration of iodinated contrast material. Angiographic images were processed, and 3D MIP images were acquired for interpretation. If IV contrast material had not been administered, the likelihood of detecting abnormalities relevant to the patient's condition would have been substantially decreased. Coronal and sagittal 3-D MIPs were likewise performed and indicated to increase the sensitivity of detecting diffuse clinically relevant pathology. CT scan was performed according to ALARA (as low as reasonably achievable). COMPARISON: jul 19:09:00 [employer] FINDINGS: A calcified granuloma is noted in the right upper lobe. Ill-defined ground-glass haze is noted involving both upper lobes. Adequate contrast bolus without evidence of pulmonary embolism. The central airways are patent. No pleural effusion. Mild cardiomegaly. There are no appreciable coronary artery or aortic atherosclerotic calcifications. No pericardial effusion is identified. The thyroid is unremarkable. No mediastinal, hilar, or axillary lymphadenopathy is noted. A sclerotic lesion in T7 vertebra, likely a bony island. Aberrant right subclavian artery seen. IMPRESSION: A calcified granuloma is noted in the right upper lobe?stable. Ill-defined ground-glass opacification involving both upper lobes, which could be sequelae of prior infection?reduced as compared to prior study. No obvious pulmonary embolism. Electronically signed by Jose De Jesus Rodríguez 08-22-2025 01:54 AM Code Status & VTE Plan Code Status Full code VTE Prophylaxis Plan VTE Prophylaxis will be ordered: Yes PG Care Time/CCT Total # of Minutes Spent Total Time Spent with Patient: Total time spent is greater than 50% in coordination of care (as documented) at patient's floor/unit and/or counseling patient: Coding Level of Care Code 58404 INT INP/OBS CARE 3/75MIN Diagnoses Hyponatremia E87.1 Pneumonia J18.9 Asthma exacerbation in COPD J44.1 CVID (common variable immunodeficiency) D83.9
[2025-08-22] MEDS ORDERED: methylPREDNISolone 10 mg/mL (For Ped Dose < 7mg) IV SCH (04:15)
[2025-08-22] MEDS: CEFEPIME 2000MG 2,000 MG/20 ML SYR IV STA (04:36)
[2025-08-22] MEDS: SODIUM CHLORIDE 3 % 100 ML IV ONE ×2 (04:40→07:26)
[2025-08-22] MEDS: MAGNESIUM SULFATE / D5W 1 GM/100 ML BAG IV ONE (04:57)
[2025-08-22] MEDS: AZITHROMYCIN 500 MG/255 ML BAG IV STA (04:58)
[2025-08-22 05:36] LABS: Anion Gap 6.0 (3-11); Blood Urea Nitrogen 7.0 mg/dl (6-23); Calcium 7.9 mg/dl (8.6-10.3); Carbon Dioxide 30.0 mmol/L (21-32); Chloride 86.0 mmol/L (98-107); Creatinine Clr Calc Pharmacy 82.5 ml/min; Glucose 83.0 mg/dl (70-99(Fasting)); Magnesium 1.9 mg/dl (1.7-2.4); Potassium 3.6 mmol/L (3.5-5.1); Sodium 122.0 mmol/L (136-145)
[2025-08-22] MEDS ORDERED: ACETAMINOPHEN 1000 MG/100 ML IV IV PRN (06:25)
[2025-08-22] MEDS: ALBUT/IPRATROP 3MG/0.5MG NEB 3 ML VIAL NEB SCH (06:37)
[2025-08-22] MEDS: Patient's HEIGHT &/or WEIGHT Needed STA (07:06)
--- NOTE | 2025-08-22 07:51 | Hospitalist Progress Note ---
Date of Service August 22, 2025 Assessment & Plan (1) Hyponatremia with normal extracellular fluid volume: (2) Hyponatremia with decreased serum osmolality: (3) Hypothyroidism: (4) Laceration of right knee without complication: (5) CVID (common variable immunodeficiency): (6) Ground glass opacity present on imaging of lung: Plan In summary this is a 45-year-old female who presented to [facility] after progressive fatigue and malaise resulting in a fall with an associated right knee laceration found to be severely hyponatremic requiring hospitalization #Hypoosmolar hyponatremia with euvolemic exam At presentation sodium measured 119; appears euvolemic; upward trend of 122-123 with most recent measure pending; in the outpatient setting the patient is not prescribed any SSRIs, antiepileptics, sulfonylureas, or thiazides; measured serum osmolality of 249, urine osmolality of 97; urine sodium is pending at this time; the patient was administered isotonic saline in the emergency department followed by hypertonic saline by the admitting provider with increase in their sodium measure, we will withhold any additional intravenous fluids at this time to avoid overcorrection; the patient's clinical history is not consistent with polydipsia as a cause of their hyponatremia given the relative paucity of water intake compared to other fluids which would not typically contribute to a primary polydipsia, hyponatremia; unlikely to be AN osmotic phenomenon given the absence of ketones and glucose in their urine, urine pH is relatively normal, ruling out bicarbonaturia; given the euvolemic state, further diagnostic testing will be pursued including a TSH (unlikely to be contributing cause given their lack of clinical findings consistent with myxedema coma however we will pursue this regardless), urine sodium for further determination of kidney function at this time, in addition to a morning cortisol to be obtained on 08/23; the patient is not prescribed any long-term medications other than their Seroquel that may be contributing to iatrogenic hyponatremia, and they have been on this medication for quite some time now without any adverse effects and laboratory assessment obtained in the interim that did not show any evidence of hyponatremia -Intake and output measure every shift -Follow daily RFP and Magnesium - Serial sodium assessment every 4 hours; avoid correction of greater than 12 mEq within a 24-hour period - Low-sodium diet with 1500 mL fluid restriction exclusively with water #Fall with right knee laceration, initial presentation Patient was found to have a laceration of the right knee without associated complications or exposure of deeper tissues, it was sutured in the emergency department without difficulty. Appears well-approximated on examination today, continue to monitor for any evidence of dehiscence. Will likely need to have sutures removed approximately 10 to 14 days postplacement #Abnormal CTA chest // Severe persistent asthma Patient was found to have some nonspecific pulmonary findings noted on their chest CTA obtained in the emergency department including previously known calcified granuloma in the right upper lobe accompanied by a nonspecific ground glass haziness of the bilateral upper lobes; without any additional evidence of an infectious process nor evidence of asthma exacerbation at this time, this is likely incidental, and can be followed closely clinically while she is hospitalized Continue home inhaler therapies With regard to the remainder of the patient's chronic medical conditions, these will be managed as they are in the outpatient setting without modification to their medication regimen unless complications arise during their hospitalization Admission and Anticipated Discharge Date Admission Date: August 22, 2025 Subjective Ms. Martinez is a 45-year-old female whose active medical conditions include common variable immunodeficiency, type 2 diabetes mellitus with hyperglycemia, hypertension, hyperlipidemia, chronic obstructive pulmonary disease requiring supplemental oxygen, bipolar disorder versus schizoaffective disorder among other chronic medical conditions who presented to the [facility] on 08/21 after sustaining a fall at home resulting in a right knee laceration preceded by several days of progressive fatigue and lack of coordination as endorsed by the patient and their significant other. The patient describes, corroborated by their significant other at bedside, that over the past 5 to 6 days they have had progressive worsening of fatigue, lack of coordination with ambulation, and increased confusion during conversations. There have been no recent medication changes to their usual regimen. They do endorse drinking a variety of fluids however they only drink approximately 48 ounces of water daily with the remainder of their intake being of variety of beverages including pop and electrolyte drinks such as Gatorade. They deny any decrease in their usual oral intake, though they admit to not having the most healthy diet. There is been no recent issues with nausea, vomiting, diarrhea, abdominal pain. They do endorse polyuria with large volume output with each void without associated dysuria, hematuria, fevers, chills, malodorous urine. Review of Systems Review of Systems: Review of constitutional, cardiovascular, pulmonary, gastrointestinal, genitourinary, neurologic systems was unremarkable except for pertinent positive and negative findings detailed in the HPI above Physical Exam Physical Exam: General: Adult female in no acute distress Vital Signs: Reviewed HEENT: Pupils equally round and reactive to light; extraocular motion intact; moist mucous membranes Pulmonary: Symmetrically reduced chest wall excursion without pleuritic pain; lungs clear to auscultation bilaterally Cardiovascular: Regular rate and rhythm with grade 2/6 systolic murmur best heard in the right second intercostal space parasternally; S1 and S2 normal; bilateral radial and posterior tibial pulse 2+ with trace bilateral lower extremity edema distal to the mid leg Gastrointestinal: Soft, protuberant; nontender to palpation throughout with normal bowel sounds Neurologic: Cranial nerves II through XII grossly intact; no discernible focal weakness no paresthesia Skin: Right knee was dressed in gauze; laceration site was inspected and appears to remain well-approximated; dressings were left intact Results & Data Results & Data Vital Signs (Past 12 Hours) Vital Signs Temp Pulse Pulse Resp BP BP Pulse Ox 08/22/25 07:48 87 17 97 08/22/25 07:33 36.7 C 86 18 95/63 L 90 08/22/25 06:37 84 18 94 08/22/25 06:30 36.6 C 85 20 119/69 91 08/22/25 05:58 76 15 101/55 L 92 08/22/25 05:00 78 18 94/59 L 92 08/22/25 03:44 78 14 120/84 96 08/22/25 03:31 78 08/22/25 02:36 80 22 92 08/22/25 02:30 123/90 08/22/25 02:27 82 14 08/22/25 02:21 82 20 08/22/25 02:12 83 17 08/22/25 02:00 131/88 08/22/25 02:00 131/88 08/22/25 02:00 82 15 08/22/25 01:51 82 15 08/22/25 01:42 81 25 H 08/22/25 01:33 80 22 94 08/22/25 01:30 120/87 08/22/25 01:30 120/87 08/22/25 01:15 82 16 08/22/25 00:33 81 7 L 94 08/22/25 00:30 122/76 08/22/25 00:12 82 20 96 08/22/25 00:00 112/73 08/22/25 00:00 112/73 08/22/25 00:00 80 15 94 08/21/25 23:57 15 08/21/25 23:53 83 16 94 08/21/25 23:30 162/126 H 08/21/25 23:30 162/126 H 08/21/25 23:30 83 19 92 08/21/25 23:21 82 20 93 08/21/25 23:17 83 08/21/25 23:05 36.4 C L 84 18 127/79 97 O2 Del Method O2 Flow Rate 08/22/25 07:48 2 08/22/25 07:33 Room Air 08/22/25 06:37 Room Air 08/22/25 06:30 Room Air 08/22/25 05:58 Room Air 08/22/25 05:00 Room Air 08/22/25 03:44 Room Air 08/22/25 03:31 08/22/25 02:36 08/22/25 02:30 08/22/25 02:27 08/22/25 02:21 08/22/25 02:12 08/22/25 02:00 08/22/25 02:00 08/22/25 02:00 08/22/25 01:51 08/22/25 01:42 08/22/25 01:33 08/22/25 01:30 08/22/25 01:30 08/22/25 01:15 08/22/25 00:33 08/22/25 00:30 08/22/25 00:12 08/22/25 00:00 08/22/25 00:00 08/22/25 00:00 08/21/25 23:57 08/21/25 23:53 Room Air 08/21/25 23:30 08/21/25 23:30 08/21/25 23:30 08/21/25 23:21 08/21/25 23:17 08/21/25 23:05 Room Air PG Care Time/CCT Total # of Minutes Spent Total Time Spent with Patient: Total time spent is greater than 50% in coordination of care (as documented) at patient's floor/unit and/or counseling patient: Coding Level of Care Code 97135 SUB INP/OBS CARE 3/50MIN Diagnoses Hyponatremia with normal extracellular fluid volume E87.1 Hyponatremia with decreased serum osmolality E87.1 Acquired hypothyroidism E03.9 Hypothyroidism type: acquired Laceration of right knee without complication, initial encounter S81.011A Encounter type: initial encounter CVID (common variable immunodeficiency) D83.9 Ground glass opacity present on imaging of lung R91.8 (3) Hypothyroidism Hypothyroidism type: acquired Qualified Code(s): E03.9 - Hypothyroidism, unspecified (4) Laceration of right knee without complication Encounter type: initial encounter Qualified Code(s): S81.011A - Laceration without foreign body, right knee, initial encounter
[2025-08-22] MEDS: FLUTICASONE FUROATE 200MCG 14 PUFFS/INHALER INH SCH (08:21)
[2025-08-22] MEDS: UMECLIDINIUM/VILANTEROL 62.5/25MCG 7 PUFFS/INHALER INH SCH (08:21)
[2025-08-22] MEDS ORDERED: PANTOprazole 40 MG/10 ML SYR IV SCH (09:00)
[2025-08-22] MEDS ORDERED: BUMETANIDE 1 MG TAB PO SCH (09:00)
[2025-08-22] MEDS ORDERED: SODIUM CHLORIDE 1 GM TABLET PO SCH (09:00)
[2025-08-22] MEDS: METOPROLOL TARTRATE 50 MG TAB PO SCH (09:28)
[2025-08-22] MEDS: LEVOTHYROXINE SODIUM 137 MCG TABLET PO SCH (09:29)
[2025-08-22] MEDS: GABAPENTIN 600 MG TAB PO SCH (09:29)
[2025-08-22] MEDS ORDERED: CEFEPIME 2000MG 2,000 MG/20 ML SYR IV SCH (12:00)
[2025-08-22 12:34] LABS: Sodium 125.0 mmol/L (136-145)
[2025-08-22 12:49] LABS: Thyroid Stimulating Hormone 1.28 uIu/ml (0.300-4.500)
[2025-08-22] MEDS: DOCUSATE SODIUM 100 MG CAP PO SCH (16:01)
--- NOTE | 2025-08-22 19:25 | Electrocardiogram Report ---
Test Reason : Blood Pressure : */* mmHG Vent. Rate : 80 BPM Atrial Rate : 80 BPM P-R Int : 162 ms QRS Dur : 96 ms QT Int : 388 ms P-R-T Axes : * 201 178 degrees QTcB Int : 447 ms Normal sinus rhythm Right superior axis deviation Cannot rule out Anterior infarct (cited on or before 04-Aug-2025) Limb lead reversal Abnormal ECG When compared with ECG of 04-Aug-2025 17:20, Limb lead reversal is now suggested Confirmed by Porfirio Jarvis ([id number]) on 08/22/2025 7:24:47 PM Referred By: REFERRED SELF Confirmed By: Porfirio Jarvis
[2025-08-22] MEDS: ATORVASTATIN 20 MG TAB PO SCH (19:50)
[2025-08-22] MEDS: MONTELUKAST SODIUM 10 MG TABLET PO SCH (19:51)
[2025-08-22] MEDS: ONDANSETRON INJ 2 MG/ML 2 ML VIAL IV PRN (20:05)
[2025-08-23] MEDS ORDERED: CARBOHYDRATES FOR HYPOGLYCEMIA PO PRN (01:09)
[2025-08-23] MEDS ORDERED: GLUCOSE 10 TAB/TUBE PO PRN (01:09)
[2025-08-23] MEDS ORDERED: GLUCAGON FOR INJ 1 MG VIAL SQ PRN (01:09)
[2025-08-23] MEDS ORDERED: GLUCOSE 40% GEL 15 GM TUBE PO PRN (01:09)
[2025-08-23] MEDS ORDERED: DEXTROSE 50% 50 ML SYRINGE IV PRN (01:09)
[2025-08-23] MEDS: DEXTROSE 5% 1,000 ML IV SCH (01:35)
[2025-08-23] MEDS ORDERED: AZITHROMYCIN 500 MG/255 ML BAG IV SCH (06:00)
--- NOTE | 2025-08-23 07:30 | Hospitalist Progress Note ---
Date of Service August 23, 2025 Assessment & Plan (1) Hyponatremia with normal extracellular fluid volume: (2) Hyponatremia with decreased serum osmolality: (3) Hypothyroidism: (4) Laceration of right knee without complication: (5) CVID (common variable immunodeficiency): (6) Ground glass opacity present on imaging of lung: Plan In summary this is a 45-year-old female who presented to [facility] after progressive fatigue and malaise resulting in a fall with an associated right knee laceration found to be severely hyponatremic requiring hospitalization #Hypoosmolar hyponatremia with euvolemic exam // Primary adrenal insufficiency At presentation sodium measured 119; remains euvolemic; in the outpatient setting the patient is not prescribed any SSRIs, antiepileptics, sulfonylureas, or thiazides; measured serum osmolality of 249, urine osmolality of 97; urine sodium is pending at this time; the patient was administered isotonic saline in the emergency department followed by hypertonic saline by the admitting provider with increase in their sodium measure, we will withhold any additional intravenous fluids at this time to avoid overcorrection; the patient's clinical history is not consistent with polydipsia as a cause of their hyponatremia given the relative paucity of water intake compared to other fluids which would not typically contribute to a primary polydipsia, hyponatremia; unlikely to be an osmotic phenomenon given the absence of ketones and glucose in their urine, urine pH is relatively normal, ruling out bicarbonaturia; normal thyroid function with current therapy; morning cortisol found to be diminished at 0.89; given mild overcorrection overnight she will receive hypotonic fluids to reduce the rate of change as below - Subsequent assessment of adrenal function pending with ACTH stimulation - Intake and output measure every shift - Follow daily RFP and Magnesium - Reassess serum sodium at 1200 hours - Administer total 1.5 L of D5W at 200 mL/hr - Low-sodium diet with 1500 mL fluid restriction exclusively with water #Fall with right knee laceration, initial presentation Patient was found to have a laceration of the right knee without associated complications or exposure of deeper tissues, it was sutured in the emergency department without difficulty. Appears well-approximated on examination today, continue to monitor for any evidence of dehiscence. Will likely need to have sutures removed approximately 10 to 14 days postplacement #Abnormal CTA chest // Severe persistent asthma Patient was found to have some nonspecific pulmonary findings noted on their chest CTA obtained in the emergency department including previously known calcified granuloma in the right upper lobe accompanied by a nonspecific ground glass haziness of the bilateral upper lobes; without any additional evidence of an infectious process nor evidence of asthma exacerbation at this time, this is likely incidental, and can be followed closely clinically while she is hospitalized Continue home inhaler therapies With regard to the remainder of the patient's chronic medical conditions, these will be managed as they are in the outpatient setting without modification to their medication regimen unless complications arise during their hospitalization Admission and Anticipated Discharge Date Admission Date: August 22, 2025 Subjective Ms. Martinez is a 45-year-old female whose active medical conditions include common variable immunodeficiency, type 2 diabetes mellitus with hyperglycemia, hypertension, hyperlipidemia, chronic obstructive pulmonary disease requiring supplemental oxygen, bipolar disorder versus schizoaffective disorder among other chronic medical conditions who presented to the [facility] on 08/21 after sustaining a fall at home resulting in a right knee laceration preceded by several days of progressive fatigue and lack of coordination as endorsed by the patient and their significant other. The patient describes, corroborated by their significant other at bedside, that over the past 5 to 6 days they have had progressive worsening of fatigue, lack of coordination with ambulation, and increased confusion during conversations. There have been no recent medication changes to their usual regimen. They do endorse drinking a variety of fluids however they only drink approximately 48 ounces of water daily with the remainder of their intake being of variety of beverages including pop and electrolyte drinks such as Gatorade. They deny any decrease in their usual oral intake, though they admit to not having the most healthy diet. There is been no recent issues with nausea, vomiting, diarrhea, abdominal pain. They do endorse polyuria with large volume output with each void without associated dysuria, hematuria, fevers, chills, malodorous urine. Overnight there were not acute events; patient's sodium did slightly overcorrect to 128, subsequently started on D5W at 125 mL per hour; expresses some frustration with fluid restriction, but reassured this is temporary. Review of Systems Review of Systems: Review of constitutional, cardiovascular, pulmonary, gastrointestinal, genitourinary, neurologic systems was unremarkable except for pertinent positive and negative findings detailed in the HPI above Physical Exam Physical Exam: General: Adult female in no acute distress Vital Signs: Reviewed HEENT: Pupils equally round and reactive to light; extraocular motion intact; moist mucous membranes Pulmonary: Symmetrically reduced chest wall excursion without pleuritic pain; lungs clear to auscultation bilaterally Cardiovascular: Regular rate and rhythm with grade 2/6 systolic murmur best heard in the right second intercostal space parasternally; S1 and S2 normal; bilateral radial and posterior tibial pulse 2+ with trace bilateral lower extremity edema distal to the mid leg Gastrointestinal: Soft, protuberant; nontender to palpation throughout with normal bowel sounds Neurologic: Cranial nerves II through XII grossly intact; no discernible focal weakness no paresthesia Skin: Right knee was dressed in gauze; laceration site was inspected and appears to remain well-approximated; dressings were left intact Results & Data Results & Data Vital Signs (Past 12 Hours) Vital Signs Temp Pulse Pulse Resp BP Pulse Ox O2 Del Method 08/23/25 07:22 94 H 17 88 L Room Air 08/23/25 07:11 36.7 C 96 H 18 142/83 H 94 CPAP 08/23/25 03:33 36.5 C 87 16 114/72 95 CPAP 08/23/25 03:22 78 12 94 08/22/25 23:20 96 H 23 96 08/22/25 23:08 36.7 C 96 H 22 125/72 96 Room Air 08/22/25 21:55 Room Air 08/22/25 21:51 99 H 08/22/25 20:11 106 H 20 91 Room Air O2 Flow Rate FiO2 08/23/25 07:22 21 08/23/25 07:11 08/23/25 03:33 08/23/25 03:22 2 08/22/25 23:20 2 08/22/25 23:08 08/22/25 21:55 08/22/25 21:51 08/22/25 20:11 Laboratory Results Sodium trend over 24 hours: 124, 125, 126, 128, 129 Serum AM cortisol 0.89 PG Care Time/CCT Total # of Minutes Spent Total Time Spent with Patient: Total time spent is greater than 50% in coordination of care (as documented) at patient's floor/unit and/or counseling patient: Coding Level of Care Code 33547 SUB INP/OBS CARE 2/35MIN Diagnoses Hyponatremia with normal extracellular fluid volume E87.1 Hyponatremia with decreased serum osmolality E87.1 Acquired hypothyroidism E03.9 Hypothyroidism type: acquired Laceration of right knee without complication, initial encounter S81.011A Encounter type: initial encounter CVID (common variable immunodeficiency) D83.9 Ground glass opacity present on imaging of lung R91.8 (3) Hypothyroidism Hypothyroidism type: acquired Qualified Code(s): E03.9 - Hypothyroidism, unspecified (4) Laceration of right knee without complication Encounter type: initial encounter Qualified Code(s): S81.011A - Laceration without foreign body, right knee, initial encounter
[2025-08-23 08:19] LABS: Albumin Level 3.7 gm/dl (3.4-5.0); Anion Gap 5.0 (3-11); Blood Urea Nitrogen 9.0 mg/dl (6-23); Calcium 8.7 mg/dl (8.6-10.3); Carbon Dioxide 32.0 mmol/L (21-32); Chloride 92.0 mmol/L (98-107); Creatinine Clr Calc Pharmacy 81.6 ml/min; Glucose 169.0 mg/dl (70-99(Fasting)); Potassium 4.2 mmol/L (3.5-5.1); Sodium 129.0 mmol/L (136-145)
[2025-08-23] MEDS: INSULIN ASPART PER UNIT CHARGE SC SCH (08:21)
[2025-08-23] MEDS: DEXTROSE 5% 500 ML IV SCH (09:04)
[2025-08-23] MEDS: COSYNTROPIN 250 MCG in SYRINGE 4 ML IV ONE (10:10)
[2025-08-23] MEDS ORDERED: Nursing to Pharmacy Communication SCH (12:45)
[2025-08-23] MEDS: OPTIRAY 320 100ml IV ONE (13:01)
--- NOTE | 2025-08-23 13:07 | Communication Note ---
Date of Service: August 23, 2025 ACTH stimulation test found to confirm primary adrenal insufficiency; plan of care discussed with patient and their partner at bedside. Obtain CT abdomen with IV contrast, adrenal protocol Start Hydrocortisone 10 mg p.o. at 0900 hours and 1400 hours daily With patient's permission her plan of care was discussed with her staff forester; at this time they do not suspect the patient's hyponatremia is related to their CVID nor its management, and they are agreeable to initiation of hydrocortisone for initial management.
[2025-08-23] MEDS: HYDROCORTISONE 10 MG TAB PO SCH (13:34)
--- NOTE | 2025-08-23 13:34 | CT Scan Report ---
CT OF THE ABDOMEN WITH AND WITHOUT CONTRAST ADRENAL PROTOCOL CLINICAL HISTORY: Adrenal protocol; concern for adrenal insufficiency. COMPARISON STUDY: No previous studies for comparison. TECHNIQUE: Unenhanced, venous and 15 minute delayed phase imaging of the abdomen was performed. Intra venous injection of 94 cc of Optiray 320 IV was uneventful. A dose lowering technique was utilized ad nnamdi to the principles of ALARA. FINDINGS: Visualized lung bases are unremarkable. There is body wall edema. No adrenal mass or hemorr shayna is present. The appearance of the adrenal glands is unremarkable by CT. There is no biliary duct al dilatation status post cholecystectomy. There are no hepatic lesions. The spleen is mildly enlarge d. Kidneys and pancreas are unremarkable. Caliber and wall thickness of visualized small and large lupe wel are normal. There is no abdominal lymphadenopathy or ascites. Please note that the pelvis was not imaged on this examination. IMPRESSION: 1. Unremarkable CT appearance of the adrenal glands. No adrenal mass or hemorrhage. 2. No acute process within the abdomen. 3. Mild splenomegaly. ACT 112: Negative or not required by law. Electronically signed by: Sergio Monroy M.D. 08/23/2025 1:33 PM
[2025-08-23] MEDS ORDERED: INFLUENZA VACC TS2025-26(6m+)/PF (IIV3) 0.5mL Syr IM ONE (14:08)
[2025-08-23] MEDS: POLYETHYLENE (MIRALAX) 17 GM PACK PO ONE (14:48)
--- NOTE | 2025-08-23 15:22 | Electrocardiogram Report ---
Test Reason : Blood Pressure : */* mmHG Vent. Rate : 85 BPM Atrial Rate : 85 BPM P-R Int : 174 ms QRS Dur : 102 ms QT Int : 380 ms P-R-T Axes : 45 -13 12 degrees QTcB Int : 452 ms Normal sinus rhythm Cannot rule out Anterior infarct (cited on or before 04-Aug-2025) Abnormal ECG When compared with ECG of 21-Aug-2025 23:57, Prior tracing has arm lead reversal Confirmed by Daquan Galvan ([id number]) on 08/23/2025 3:21:46 PM Referred By: REFERRED SELF Confirmed By: Daquan Galvan
[2025-08-23] MEDS: ALBUT/IPRATROP 3MG/0.5MG NEB 3 ML VIAL NEB PRN (21:47)
[2025-08-24 02:21] VITALS: RESP 20
[2025-08-24 07:34] VITALS: O2SAT 94
--- NOTE | 2025-08-24 07:49 | Hospitalist Progress Note ---
Date of Service August 24, 2025 Assessment & Plan (1) Primary adrenal insufficiency: (2) Hyponatremia with normal extracellular fluid volume: (3) Hyponatremia with decreased serum osmolality: (4) Hypothyroidism: (5) Laceration of right knee without complication: (6) CVID (common variable immunodeficiency): (7) Ground glass opacity present on imaging of lung: Plan In summary this is a 45-year-old female who presented to [facility] after progressive fatigue and malaise resulting in a fall with an associated right knee laceration found to be severely hyponatremic requiring hospitalization #Hypoosmolar hyponatremia with euvolemic exam // Primary adrenal insufficiency At presentation sodium measured 119; remains euvolemic; in the outpatient setting the patient is not prescribed any SSRIs, antiepileptics, sulfonylureas, or thiazides; measured serum osmolality of 249, urine osmolality of 97; urine sodium is pending at this time; the patient was administered isotonic saline in the emergency department followed by hypertonic saline by the admitting provider with increase in their sodium measure, we will withhold any additional intravenous fluids at this time to avoid overcorrection; the patient's clinical history is not consistent with polydipsia as a cause of their hyponatremia given the relative paucity of water intake compared to other fluids which would not typically contribute to a primary polydipsia, hyponatremia; unlikely to be an osmotic phenomenon given the absence of ketones and glucose in their urine, urine pH is relatively normal, ruling out bicarbonaturia; normal thyroid function with current therapy; morning cortisol found to be diminished at 0.89;ACTH stimulation test consistent with primary adrenal insufficiency, CT abdomen with contrast did not reveal structural or ischemic adrenal pathology - Intake and output measure every shift - Follow daily RFP and Magnesium - Liberate diet to consistent carbohydrate #Fall with right knee laceration, initial presentation Patient was found to have a laceration of the right knee without associated complications or exposure of deeper tissues, it was sutured in the emergency department without difficulty. Appears well-approximated on examination today, continue to monitor for any evidence of dehiscence. Will likely need to have sutures removed approximately 10 to 14 days postplacement #Abnormal CTA chest // Severe persistent asthma Patient was found to have some nonspecific pulmonary findings noted on their chest CTA obtained in the emergency department including previously known calcified granuloma in the right upper lobe accompanied by a nonspecific ground glass haziness of the bilateral upper lobes; without any additional evidence of an infectious process nor evidence of asthma exacerbation at this time, this is likely incidental, and can be followed closely clinically while she is hospitalized Continue home inhaler therapies With regard to the remainder of the patient's chronic medical conditions, these will be managed as they are in the outpatient setting without modification to their medication regimen unless complications arise during their hospitalization Admission and Anticipated Discharge Date Admission Date: August 22, 2025 Subjective Ms. Martinez is a 45-year-old female whose active medical conditions include common variable immunodeficiency, type 2 diabetes mellitus with hyperglycemia, hypertension, hyperlipidemia, chronic obstructive pulmonary disease requiring supplemental oxygen, bipolar disorder versus schizoaffective disorder among other chronic medical conditions who presented to the [facility] on 08/21 after sustaining a fall at home resulting in a right knee laceration preceded by several days of progressive fatigue and lack of coordination as endorsed by the patient and their significant other. The patient describes, corroborated by their significant other at bedside, that over the past 5 to 6 days they have had progressive worsening of fatigue, lack of coordination with ambulation, and increased confusion during conversations. There have been no recent medication changes to their usual regimen. They do endorse drinking a variety of fluids however they only drink approximately 48 ounces of water daily with the remainder of their intake being of variety of beverages including pop and electrolyte drinks such as Gatorade. They deny any decrease in their usual oral intake, though they admit to not having the most healthy diet. There is been no recent issues with nausea, vomiting, diarrhea, abdominal pain. They do endorse polyuria with large volume output with each void without associated dysuria, hematuria, fevers, chills, malodorous urine. Overnight there were not acute events Review of Systems Review of Systems: Review of constitutional, cardiovascular, pulmonary, gastrointestinal, genitourinary, neurologic systems was unremarkable except for pertinent positive and negative findings detailed in the HPI above Physical Exam Physical Exam: General: Adult female in no acute distress Vital Signs: Reviewed HEENT: Pupils equally round and reactive to light; extraocular motion intact; moist mucous membranes Pulmonary: Symmetrically reduced chest wall excursion without pleuritic pain; lungs clear to auscultation bilaterally Cardiovascular: Regular rate and rhythm with grade 2/6 systolic murmur best heard in the right second intercostal space parasternally; S1 and S2 normal; bilateral radial and posterior tibial pulse 2+ with trace bilateral lower extremity edema distal to the mid leg Gastrointestinal: Soft, protuberant; nontender to palpation throughout with normal bowel sounds Neurologic: Cranial nerves II through XII grossly intact; no discernible focal weakness no paresthesia Skin: Right knee was dressed in gauze; laceration site was inspected and appears to remain well-approximated; dressings were left intact Results & Data Results & Data Vital Signs (Past 12 Hours) Vital Signs Temp Pulse Pulse Pulse Resp BP BP 08/24/25 07:32 36.6 C 82 20 110/78 08/24/25 02:20 36.6 C 84 20 133/77 08/23/25 22:31 37 C 107 H 18 124/82 08/23/25 22:01 89 08/23/25 21:47 90 20 08/23/25 20:00 Pulse Ox O2 Del Method O2 Flow Rate 08/24/25 07:32 94 Room Air 08/24/25 02:20 96 CPAP 08/23/25 22:31 92 Room Air 08/23/25 22:01 08/23/25 21:47 86 L Room Air 08/23/25 20:00 Nasal Cannula 2 PG Care Time/CCT Total # of Minutes Spent Total Time Spent with Patient: Total time spent is greater than 50% in coordination of care (as documented) at patient's floor/unit and/or counseling patient: Coding Level of Care Code 80205 SUB INP/OBS CARE 2/35MIN Diagnoses Primary adrenal insufficiency E27.1 Hyponatremia with normal extracellular fluid volume E87.1 Hyponatremia with decreased serum osmolality E87.1 Acquired hypothyroidism E03.9 Hypothyroidism type: acquired Laceration of right knee without complication, initial encounter S81.011A Encounter type: initial encounter CVID (common variable immunodeficiency) D83.9 Ground glass opacity present on imaging of lung R91.8 (4) Hypothyroidism Hypothyroidism type: acquired Qualified Code(s): E03.9 - Hypothyroidism, unspecified (5) Laceration of right knee without complication Encounter type: initial encounter Qualified Code(s): S81.011A - Laceration without foreign body, right knee, initial encounter
[2025-08-24] MEDS: HYDROCORTISONE 10 MG TAB PO SCH (08:09)
[2025-08-24] MEDS: ADVANCED PROBIOTIC 625 MG CAPSULE PO SCH (08:11)
[2025-08-24] MEDS: POLYETHYLENE (MIRALAX) 17 GM PACK PO SCH (08:12)
[2025-08-24 08:55] LABS: Albumin Level 4.1 gm/dl (3.4-5.0); Anion Gap 3.0 (3-11); Blood Urea Nitrogen 11.0 mg/dl (6-23); Calcium 9.5 mg/dl (8.6-10.3); Carbon Dioxide 35.0 mmol/L (21-32); Chloride 94.0 mmol/L (98-107); Creatinine Clr Calc Pharmacy 90.8 ml/min; Glucose 138.0 mg/dl (70-99(Fasting)); Potassium 4.6 mmol/L (3.5-5.1); Sodium 132.0 mmol/L (136-145)
[2025-08-24 11:09] VITALS: TEMP 98.1
[2025-08-24] MEDS: NYSTATIN POWDER 15GM BTL EXT SCH (11:23)
[2025-08-24 11:54] VITALS: BP 133/77; PULSE 84
[2025-08-24 12:09] LABS: Appearance Urine Clear (Clear); Bacteria Urine Automated None Seen (None Seen); Cast Urine Automated 0-2 /lpf (0-2); Glucose Urine UA Negative (Negative); RBC Urine Automated 0-2 /hpf (0-2); WBC Urine Automated 0-5 /hpf (0-5)
--- NOTE | 2025-08-24 12:44 | Discharge Summary ---
Discharge Summary Date of Service August 24, 2025 Principal Dx & Hospital Course #1 = Principal Diagnosis (1) Primary adrenal insufficiency: (2) Hyponatremia with normal extracellular fluid volume: (3) Hyponatremia with decreased serum osmolality: (4) Hypothyroidism: (5) Laceration of right knee without complication: (6) CVID (common variable immunodeficiency): (7) Ground glass opacity present on imaging of lung: Plan In summary this is a 45-year-old female who presented to [facility] after progressive fatigue and malaise resulting in a fall with an associated right knee laceration found to be severely hyponatremic requiring hospitalization #Hypoosmolar hyponatremia with euvolemic exam // Primary adrenal insufficiency At presentation sodium measured 119; remains euvolemic; in the outpatient setting the patient is not prescribed any SSRIs, antiepileptics, sulfonylureas, or thiazides; measured serum osmolality of 249, urine osmolality of 97; urine sodium is pending at this time; the patient was administered isotonic saline in the emergency department followed by hypertonic saline by the admitting provider with increase in their sodium measure, we will withhold any additional intravenous fluids at this time to avoid overcorrection; the patient's clinical history is not consistent with polydipsia as a cause of their hyponatremia given the relative paucity of water intake compared to other fluids which would not typically contribute to a primary polydipsia, hyponatremia; unlikely to be an osmotic phenomenon given the absence of ketones and glucose in their urine, urine pH is relatively normal, ruling out bicarbonaturia; normal thyroid function with current therapy; morning cortisol found to be diminished at 0.89;ACTH stimulation test consistent with primary adrenal insufficiency, CT abdomen with contrast did not reveal structural or ischemic adrenal pathology; her lack of evidence for need of mineralocorticoid supplementation is not typical of JEFF, but assessment here is most consistent with this rather than EULALIA; urinalysis on the day of discharge is still notable for diminished SPG, but this is not unexpected given her diuretic therapy - Continue Hydrocortisone 10 mg p.o. at 0900 and 1400 hours - Referred to Endocrinology at discharge #Fall with right knee laceration, initial presentation Patient was found to have a laceration of the right knee without associated complications or exposure of deeper tissues, it was sutured in the emergency department without difficulty. Appears well-approximated on examination today, continue to monitor for any evidence of dehiscence. Will likely need to have sutures removed approximately 10 to 14 days postplacement #Abnormal CTA chest // Severe persistent asthma Patient was found to have some nonspecific pulmonary findings noted on their chest CTA obtained in the emergency department including previously known calcified granuloma in the right upper lobe accompanied by a nonspecific ground glass haziness of the bilateral upper lobes; without any additional evidence of an infectious process nor evidence of asthma exacerbation at this time, this is likely incidental, and can be followed closely clinically while she is hospitalized Continue home inhaler therapies With regard to the remainder of the patient's chronic medical conditions, these will be managed as they are in the outpatient setting without modification to their medication regimen unless complications arise during their hospitalization Admission HPI Per Admitting Provider The patient is a 45-year-old female with a past medical history including allergic asthma, thrush, pain due to IUD, chronic constipation, endometrial mass, iron deficiency anemia, history of DVT, DARWIN, multiple pulmonary nodules, GERD, hypothyroidism, diabetes mellitus type 2, basal cell carcinoma, schizo active schizophrenia, bipolar disorder, PTSD, migraine, COPD, and CVID receiving periodic IVIG.The patient presents to the emergency department with her solar energy technician, who provides most of the HPI and review of systems. The patient herself is lethargic, will periodically open her eyes and attempt to say some words, but then falls immediately back to sleep. She reportedly fell in the kitchen, and had multiple lacerations hide right calf, repaired by the ED. The patient was evidently walking in the kitchen, had one of her dizzy spells, tripped and fell over unknown object. Per the patient and significant other, she has chronic nausea and is on scheduled Zofran, but is no vomiting. Workup in the emergency department included the following imaging studies: CT scan of head was normal, CTA head and neck was normal, CT scan thoracic spine was normal, CT C scan of cervical spine was normal. Tib-fib x-ray showed moderate right knee osteoarthritis, and soft tissue swelling anterior proximal right leg. Significant abnormal laboratories: Magnesium 1.5, AST 90, sodium 119, serum osmolality 249, urine osmolality 97. Discharge Exam General: Adult female in no acute distress Vital Signs: Reviewed HEENT: Pupils equally round and reactive to light; extraocular motion intact; moist mucous membranes Pulmonary: Symmetrically reduced chest wall excursion without pleuritic pain; lungs clear to auscultation bilaterally Cardiovascular: Regular rate and rhythm with grade 2/6 systolic murmur best heard in the right second intercostal space parasternally; S1 and S2 normal; bilateral radial and posterior tibial pulse 2+ with trace bilateral lower extremity edema distal to the mid leg Gastrointestinal: Soft, protuberant; nontender to palpation throughout with normal bowel sounds Neurologic: Cranial nerves II through XII grossly intact; no discernible focal weakness no paresthesia Skin: Right knee was dressed in gauze; laceration site was inspected and appears to remain well-approximated; dressings were left intact Discharge Plan Discharge Items Patient Disposition: Home - Self-Care Reason For Visit: HYPONATREMIA, ASTHMA EX Discharge Diagnosis: Primary adrenal insufficiency resulting in symptomatic hyponatremia // Right leg laceration, repaired Condition on Discharge: Fair Activity: Per Instructions section Non-emergency contact: Primary Care Provider and Specialist Call non-emergency contact if: you have any medication questions and your symptoms worsen Follow-up/Referrals: Victorina Maldonado MD [Physician] - (Primary adrenal insufficiency with symptomatic hyponatremia // spouse is established with you, requested provider by name Dr. Maldonado's office will be calling you with appointment, if you do not hear from them, please call them.) Caroline Shah PA-C [Physician Bricklayer] - 09/01/25 9:15 am Diet: Carb Consistent or DM2 and Low Fat Fluids: 2000ml (8 cups) Addtl Attending Provider Instructions: You were admitted to [facility] for symptomatic hyponatremia found to be secondary to primary adrenal insufficiency. With respect to your presenting complaint, your initial sodium measure was 119, over 24 hours it was corrected to 126-127; on the day of discharge it was measured to be 132; your associated symptoms have resolved from your initial presentation. The initial concern with regard to your presenting complaint was the potential for primary polydipsia, which is typically associated with excessive intake of water however your described intake is not to the degree that would typically cause this condition. After further diagnostic testing, it was determined that this is most likely consequential of primary adrenal insufficiency after cortisol and ACTH stimulation tests confirmed. A CT abdomen with contrast did not reveal any significant pathology notable in the adrenal glands, further diagnostic testing for the direct cause of this condition can be pursued in the outpatient setting. He was started on hydrocortisone 10 mg p.o. twice daily to be taken at 0900 hrs. and 1400 hrs., this may be adjusted further by your investor relations specialist in the outpatient setting to whom we referred at the time of discharge. Your plan of care was discussed with your shredding machine knife changer given the associated comorbidities and management of care they prescribed; they are agreeable to this current plan of care. At the time of your presentation, you had sustained a fall lacerating the proximal right leg with an approximately 6 cm laceration with 1 cm of depth at its deepest point; this was approximated in the emergency department using horizontal mattress sutures; we recommend you follow-up with your primary care physician as previously scheduled, and discuss removal of these in approximately 10 to 15 days after their initial placement. This may be adjusted based on your primary care physicians assessment of the wound. At the time of your presentation, CTA of the chest was obtained which revealed some hazy opacification in the apices of the lung bilaterally, throughout your hospitalization has been no complications related to your pulmonary assessment nor indication of an asthma exacerbation nor infectious process. This was likely an incidental finding of no pathologic significance. If you begin to develop pulmonary symptoms that cause concern please contact your primary care physician or, if you feel it is necessary, return to the emergency department for evaluation. Thank you for choosing [facility] as your healthcare provider. Pending Studies at Discharge: Yes Studies:: Urinalysis and urine osmolarity Stand-Alone Forms: My [facility] Medications and DC Order Prescriptions: New hydrocortisone 10 mg tablet 10 mg PO BID 30 Days Qty: 60 0RF Continued diltiazem HCl [Cardizem CD] 300 mg capsule,extended release 24hr 300 mg PO QAM Qty: 90 3RF pantoprazole [Protonix] 40 mg tablet,delayed release (DR/EC) 40 mg PO BID Qty: 180 2RF levothyroxine 137 mcg capsule 137 mcg PO QAM Qty: 90 2RF ipratropium-albuterol 0.5 mg-3 mg(2.5 mg base)/3 mL solution for nebulization 3 ml inhalation QID PRN (Reason: Shortness Of Breath) Qty: 360 2RF oxycodone-acetaminophen [Percocet] 7.5-325 mg tablet 1 tab PO QID PRN (Reason: pain) Qty: 90 0RF epinephrine 0.3 mg/0.3 mL auto-injector 0.3 mg IM DIRECTED PRN (Reason: Allergic Reaction) Rx Instructions: for 2 doses Hizentra 1 gram/5 mL (20 %) solution 70 ml subcut WK Rx Instructions: THURSDAYS fluticasone propionate 50 mcg/actuation spray,suspension 2 spray intranasal QAM Rx Instructions: administer into each nostril diclofenac sodium 1 % gel 2 g topical QID PRN (Reason: Pain) (DME) nebulizers Misc See Rx Instructions .Route Qty: 1 0RF Rx Instructions: As directed gabapentin 600 mg tablet 600 mg PO QID metoprolol tartrate 50 mg tablet 50 mg PO BID Qty: 180 3RF quetiapine 100 mg tablet 100 mg PO QAM quetiapine 300 mg tablet 300 mg PO HS naloxone [Narcan] 4 mg/actuation spray,non-aerosol 4 mg intranasal Q2M PRN (Reason: opioid overdose) Qty: 2 0RF Rx Instructions: spray 1 dose into ONE nostril; alternate nostrils w each dose until help arrives ipratropium bromide 42 mcg (0.06 %) spray,non-aerosol 2 spray intranasal QID PRN (Reason: Congestion) Qty: 15 0RF Rx Instructions: administer into each nostril Mirena 21 mcg/24hr (up to 8 yrs) 52 mg intrauterine device 21 mcg intrauterine CONTINOUS bumetanide 1 mg tablet See Rx Instructions PO QAM Qty: 135 3RF Rx Instructions: Take 1 mg alternating with 2 mg every other day tirzepatide 5 mg/0.5 mL pen injector 5 mg subcut .ONCE WEEKLY Qty: 6 0RF Airsupra 90-80 mcg/actuation HFA aerosol inhaler 2 inh inhalation QID PRN (Reason: shortness of breath) Qty: 5.9 0RF (DME) Space Chamber Spacer See Rx Instructions .Route Qty: 1 0RF Rx Instructions: As directed Breztri Aerosphere 160-9-4.8 mcg/actuation HFA aerosol inhaler 2 inh inhalation BID Qty: 10.7 2RF ondansetron HCl 8 mg tablet 8 mg PO Q8H PRN (Reason: Nausea) Qty: 30 3RF montelukast [Singulair] 10 mg tablet 10 mg PO QPM Qty: 90 3RF potassium chloride 20 mEq Packet 20 meq PO DAILY Patient Comments: per pt she mixes with juice once a day when she remembers loratadine [Claritin] 10 mg Tablet 10 mg PO QAM bupropion HCl [Wellbutrin XL] 150 mg Tablet Extended Release 24 Hr 150 mg PO BID quetiapine 25 mg tablet 25 mg PO BID PRN (Reason: Anxiety) hydroxyzine pamoate 100 mg capsule 100 mg PO TID PRN (Reason: Itching) atorvastatin 20 mg tablet 20 mg PO HS nystatin 100,000 unit/gram ointment 1 applic topical QID PRN (Reason: Rash) mupirocin 2 % ointment 1 applic topical TID PRN (Reason: Rash) benzonatate 100 mg capsule 100 mg PO BID PRN (Reason: Cough) docusate sodium 100 mg capsule 100 mg PO QDD Discharge Orders: Discharge Order (Routine); Ordered 08/24/25 Ordered By: Swapnil Loja/Other Patient Handouts: When You Have Keyser Disease, Hyponatremia Dc Admission Data Admit Date/Time: 08/22/25 04:08 Attending Provider: Swapnil Anne Admit Provider: John Huggins Primary Care Provider: Faye Kimball Other Providers: John Huggins Other Interventions: Discharge Summary Assessment (RN) Last Done: 08/24/25 11:50 Hospital Stay Data Consultations 08/22/25 02:20 ED Decision to Admit Stat Diagnostic Imagining Performed 08/21/25 23:53 CT cervical spine wo con Stat CT head/brain wo con Stat CT thoracic spine w con Stat CTA head w con [CT angio head w con] Stat CTA neck with con [CT angio neck with con] Stat 08/21/25 23:54 CT angio chest PE protocol Stat 08/23/25 11:59 CT abdomen wo/w con Routine Pending Results Patient Have Any Pending Studies at Discharge: Yes Discharge Instructions Given to Patient (Per Discharging Provider) You were admitted to [facility] for symptomatic hyponatremia found to be secondary to primary adrenal insufficiency. With respect to your presenting complaint, your initial sodium measure was 119, over 24 hours it was corrected to 126-127; on the day of discharge it was measured to be 132; your associated symptoms have resolved from your initial presentation. The initial concern with regard to your presenting complaint was the potential for primary polydipsia, which is typically associated with excessive intake of water however your described intake is not to the degree that would typically cause this condition. After further diagnostic testing, it was determined that this is most likely consequential of primary adrenal insufficiency after cortisol and ACTH stimulation tests confirmed. A CT abdomen with contrast did not reveal any significant pathology notable in the adrenal glands, further diagnostic testing for the direct cause of this condition can be pursued in the outpatient setting. He was started on hydrocortisone 10 mg p.o. twice daily to be taken at 0900 hrs. and 1400 hrs., this may be adjusted further by your investor relations specialist in the outpatient setting to whom we referred at the time of discharge. Your plan of care was discussed with your shredding machine knife changer given the associated comorbidities and management of care they prescribed; they are agreeable to this current plan of care. At the time of your presentation, you had sustained a fall lacerating the proximal right leg with an approximately 6 cm laceration with 1 cm of depth at its deepest point; this was approximated in the emergency department using horizontal mattress sutures; we recommend you follow-up with your primary care physician as previously scheduled, and discuss removal of these in approximately 10 to 15 days after their initial placement. This may be adjusted based on your primary care physicians assessment of the wound. At the time of your presentation, CTA of the chest was obtained which revealed some hazy opacification in the apices of the lung bilaterally, throughout your hospitalization has been no complications related to your pulmonary assessment nor indication of an asthma exacerbation nor infectious process. This was likely an incidental finding of no pathologic significance. If you begin to develop pulmonary symptoms that cause concern please contact your primary care physician or, if you feel it is necessary, return to the emergency department for evaluation. Thank you for choosing [facility] as your healthcare provider. Total Time Total Time Spent Total Time Spent (In Minutes): I personally spent 50 minutes in the coordination of this patient's discharge including bedside counseling, physical exam, chart review, coordination of care with specialists and , as well as medication reconciliation Coding Level of Care Code 18007 INP/OBS DISCH >30 MIN Diagnoses Primary adrenal insufficiency E27.1 Hyponatremia with normal extracellular fluid volume E87.1 Hyponatremia with decreased serum osmolality E87.1 Acquired hypothyroidism E03.9 Hypothyroidism type: acquired Laceration of right knee without complication, initial encounter S81.011A Encounter type: initial encounter CVID (common variable immunodeficiency) D83.9 Ground glass opacity present on imaging of lung R91.8
== END 2025-08-24 12:39 | disposition home or self-care (01) | DRG 644 ==
LOC: SUATTDRO → ED 22:59 → SUATTDRO 08-22 04:08 → EDINP 08-22 04:08 → 2S 08-22 05:58